=== PATIENT | male | born 1940 | race Caucasian/White ===

== ENCOUNTER 2017-08-03 03:44 | Inpatient (IN) | payer MEDICARE ==
[~2017-08-03] VITALS: Ht 172.7 cm; Wt 113.0 kg
[~2017-08-03 03:44] MED LIST: ALLOPURINOL100 MG PO; KEFLEX500 M1 PO; LASIX 40 MG40 MG/TAB PO; LOSARTAN POT50 MG PO; NAPROSYN500 MG OR; NO MEDS
[2017-08-03 04:09] LABS: HEMATOCRIT 48.2 % (39.0-50.0); IMMATURE GRANULOCYTES 0.4 % (0.0-1.0); MEAN CORPUSCULAR HGB 34.6 pG CALC (26.0-32.0); MEAN CORPUSCULAR HGB CONC 35.3 g/L CALC (32.0-36.0); NEUT# 14.77 thou/uL (1.82-7.42); RED BLOOD COUNT 4.92 mill/uL (4.70-6.10)
[2017-08-03 04:34] LABS: ALBUMIN 4.1 g/dL (3.2-5.0); ALKALINE PHOSPHATASE 76 u/l (38-126); ANION GAP 17 (6-22 (CALC)); BILIRUBIN, TOTAL 2.7 mg/dL (0.0-1.4); BUN 17 mg/dL (8-23); BUN/CREATININE RATIO 22 (12-20 (CALC)); CARBON DIOXIDE 27 mmol/l (22-30); CHLORIDE 98 mmol/l (95-108); CREATININE 0.8 mg/dL (0.7-1.3); GFR > 60 ML/MIN (>=60 (CALC)); GFR FOR AFR.AMER. > 60 ML/MIN (>=60 (CALC)); GLUCOSE 116 mg/dL (82-115); POTASSIUM 3.9 mmol/l (3.5-5.1); SGOT/AST 25 u/l (19-48); SGPT/ALT 29 u/l (11-66); SODIUM 138 mmol/l (137-146); TOTAL PROTEIN 7.6 g/dL (6.3-8.2)
[2017-08-03 04:47] LABS: MYOGLOBIN 43 ng/mL (0 - 121)
[2017-08-03 06:43] LABS: AMYLASE 126 u/l (30-110); LIPASE 691 u/l (23-300)
[2017-08-03 08:05] VITALS: BP 152/70
[2017-08-03 08:34] LABS: CHOLESTEROL HDL RATIO 2.4 (<4.4 (CALC))
[2017-08-03 14:07] LABS: URINE BLOOD DIPSTICK NEGATIVE (NEGATIVE); URINE CLARITY SLIGHT CLOUDY; URINE COLOR YELLOW; URINE GLUCOSE - DIPSTICK NEGATIVE (NEGATIVE); URINE KETONE TRACE mg/dL (NEGATIVE); URINE LEUK ESTERASE NEGATIVE (NEGATIVE); URINE NITRITE - DIPSTICK NEGATIVE (Negative); URINE PROTEIN - DIPSTICK 30 mg/dL (NEG-TRACE)
[2017-08-03 14:08] LABS: URINE BILIRUBIN - DIPSTICK NEGATIVE (NEGATIVE)
[2017-08-03 14:19] LABS: URINE BACTERIA FEW hpf; URINE RBC 0-2 RBC/hpf (0-5); URINE SQUAMOUS EPITHELIAL CELL MODERATE EPI/hpf (0-FEW); URINE WBC 0-2 WBC/hpf (0-5)
[2017-08-03 16:01] VITALS: BP 171/73
[2017-08-03 19:08] VITALS: BP 179/66
[2017-08-04 04:30] VITALS: BP 198/83
[2017-08-04 05:31] LABS: HEMOGLOBIN 15.6 g/dl (14.0-18.0); IMMATURE GRANULOCYTES 0.6 % (0.0-1.0); MEAN CORPUSCULAR HGB 34.7 pG CALC (26.0-32.0); MEAN CORPUSCULAR HGB CONC 34.7 g/L CALC (32.0-36.0); NEUT# 12.38 thou/uL (1.82-7.42); RED BLOOD COUNT 4.5 mill/uL (4.70-6.10); RED CELL DISTRI WIDTH 14.7 % (11.5-15.5)
[2017-08-04 05:39] LABS: ANION GAP 16 (6-22 (CALC)); BUN 13 mg/dL (8-23); BUN/CREATININE RATIO 18 (12-20 (CALC)); CALCIUM 8.7 mg/dL (8.4-10.2); CARBON DIOXIDE 26 mmol/l (22-30); CHLORIDE 96 mmol/l (95-108); CREATININE 0.7 mg/dL (0.7-1.3); GFR > 60 ML/MIN (>=60 (CALC)); GFR FOR AFR.AMER. > 60 ML/MIN (>=60 (CALC)); GLUCOSE 103 mg/dL (82-115); LIPASE 133 u/l (23-300); MAGNESIUM 1.8 mg/dL (1.6-2.3); POTASSIUM 3.9 mmol/l (3.5-5.1); SODIUM 134 mmol/l (137-146)
[2017-08-04 08:21] VITALS: BP 160/78
[2017-08-04] MEDS ORDERED: PEPCID20 MG PO (08:31)
[2017-08-04] MEDS ORDERED: AMLODIPINE BESYL5 MG PO (08:32)
[2017-08-04] MEDS ORDERED: LOSARTAN POT50 MG PO (09:17)
[2017-08-04 09:53] VITALS: BP 160/78
== END 2017-08-04 14:15 | disposition home or self-care (01) | DRG 304 ==
LOC: ED 03:44 → ED-I 06:20 → ED 07:04 → MS2 07:05
PROVIDERS: Emergency Medicine; Nurse Practitioner Family; ADMIT Internal Medicine; ATTEND Internal Medicine
DX: I16.0 Hypertensive urgency (principal); K85.90 Acute pancreatitis without necrosis or infection, unspecified; K76.0 Fatty (change of) liver, not elsewhere classified; L97.829 Non-pressure chronic ulcer of other part of left lower leg with unspecified severity; I10 Essential (primary) hypertension; M10.9 Gout, unspecified; M19.90 Unspecified osteoarthritis, unspecified site; R09.02 Hypoxemia; I87.2 Venous insufficiency (chronic) (peripheral); Z91.14 Patient's other noncompliance with medication regimen; Z87.891 Personal history of nicotine dependence
CPT/HCPCS: Q9967

== ENCOUNTER 2019-08-29 13:30 | Inpatient (IN) | payer MEDICARE ==
[~2019-08-29] VITALS: Ht 172.7 cm; Wt 104.2 kg
[~2019-08-29 13:30] MED LIST changes: +AMLODIPINE BESYL5 MG PO; +PEPCID20 MG PO
--- NOTE | 2019-08-29 13:30 | NUR ---
PT ASSITED FROM CAR WITH SOB. IMMEADIATELY TO TX AREA.
--- NOTE | 2019-08-29 13:49 | NUR ---
PT TO ROOM VIA WC. PT STATES BEING OUT OF MEDICATIONS, AND SOB FOR THE PAST FEW DAYS. PT HAS A NONPRODUCTIVE COUGH, PT IS AOX4. DENIES ANY C/P, N/V OR WEAKNESS.
[2019-08-29] MEDS ORDERED: LASIX80 MG PO (13:51)
[2019-08-29 14:28] LABS: HEMATOCRIT 41.3 % (39.0-50.0); HEMOGLOBIN 13.7 g/dl (14.0-18.0); IMMATURE GRANULOCYTES 0.5 % (0.0-5.0); MEAN CELL VOLUME 100.2 fL CALC (80.0-100.0); MEAN CORPUSCULAR HGB 33.3 pG CALC (26.0-32.0); MEAN CORPUSCULAR HGB CONC 33.2 g/L CALC (32.0-36.0); NEUT# 4.4 thou/uL (1.82-7.42); RED BLOOD COUNT 4.12 mill/uL (4.70-6.10); RED CELL DISTRI WIDTH 14.8 % (11.5-15.5)
--- NOTE | 2019-08-29 14:40 | NUR ---
PT RESTING ON STRETCHER, 400ML OF URINE OUTPUT
[2019-08-29 14:46] LABS: ALBUMIN 3.7 g/dL (3.2-5.0); ANION GAP 15 (6-22 (CALC)); BILIRUBIN, TOTAL 1.5 mg/dL (0.0-1.4); BUN 13 mg/dL (8-23); BUN/CREATININE RATIO 17 (12-20 (CALC)); CARBON DIOXIDE 25 mmol/l (22-30); CHLORIDE 105 mmol/l (95-108); CREATININE 0.8 mg/dL (0.7-1.3); GFR > 60 ML/MIN (>=60 (CALC)); GFR FOR AFR.AMER. > 60 ML/MIN (>=60 (CALC)); LIPASE 16 u/l (23-300); MAGNESIUM 1.8 mg/dL (1.6-2.3); SGOT/AST 24 u/l (19-48); SODIUM 140 mmol/l (137-146)
[2019-08-29 14:47] LABS: PROTHROMBIN TIME 12.1 SECONDS (9.0-12.5)
[2019-08-29 14:55] LABS: ALKALINE PHOSPHATASE 108 u/l (38-126)
[2019-08-29 14:56] LABS: INTERNATIONAL NORMALIZED RATIO 1.2 RATIO (0.7-1.3)
[2019-08-29 15:25] LABS: URINE BILIRUBIN - DIPSTICK NEGATIVE (NEGATIVE); URINE BLOOD DIPSTICK NEGATIVE (NEGATIVE); URINE COLOR YELLOW; URINE GLUCOSE - DIPSTICK NEGATIVE (NEGATIVE); URINE KETONE NEGATIVE (NEGATIVE); URINE LEUK ESTERASE NEGATIVE (NEGATIVE); URINE NITRITE - DIPSTICK NEGATIVE (Negative); URINE PROTEIN - DIPSTICK 30 mg/dL (NEG-TRACE); URINE SPECIFIC GRAVITY 1.025
[2019-08-29 15:30] LABS: URINE MUCUS FEW hpf (NONE-FEW); URINE SQUAMOUS EPITHELIAL CELL FEW EPI/hpf (0-FEW)
--- NOTE | 2019-08-29 15:41 | NUR ---
SBAR PRINTED TO FLOOR
--- NOTE | 2019-08-29 16:01 | NUR ---
400 ML OF URINE OUT
--- NOTE | 2019-08-29 16:29 | NUR ---
REPORT CALLED TO MS2EVANS RN ACCEPTED PT
--- NOTE | 2019-08-29 16:35 | NUR ---
Admission Note Report Given to: EVANS RN Transported by: Wheelchair X Stretcher Transported with: X Nurse Transporter X Patent IV X O2 X Roadmaster TRANSPORTED [place] [facility] [place]
[2019-08-29 16:46] VITALS: BP 184/118
[2019-08-29 17:45] VITALS: BP 173/100
--- NOTE | 2019-08-29 17:52 | NUR ---
PT ARRIVED TO FLOOR @ 1640 VIA STRETCHER ACCOMPANIED BY RIVAS EVANS. PT TRANSFERED TO BED WITH STANDBY ASSIST. UNSTEADY GAIT R/T EDEMA BILAt FEET. SOB W/ EXERTION NOTED. PT ORIENTED TO ROOM ADN EQUIPMENT. PLAN OF CARE REVIEWED. DR. OAKLEY IN TO SEE PT. PLAN OF CARE UPDATED. ALERT AND ORIENTED. HARD OF HEARING. O2 @ 2L VIA NC, PT STATES DOES NOT USE O2 AT HOME. WHEEZING HEARD THROUGHOUT LUNGS. PRODUCTIVE COUGH, YELLOW THICK SPUTUM REPORTED. 2+ EDEMA TO BILAT FEET, PEDAL PULSES WEAK. LAST BM 08/28/19. HEART SOUNDS IRREGULAR, AFIB 67 ON TELE PER GEOVANNI IN ED. #20 LAC SALINE LOCK. SCATTERED SCABBINGS TO ALL EXTREMITIES AND FACE, NOTHING OPEN. PT DENIES PAIN. REPORTING OF CONCERNS ENCOURAGED. CALL LIGHT REVIEWED AND IN REACH. FALL PRECAUTIONS REINFORCED. PT STATES UNDERSTANDING.
[2019-08-29 19:10] VITALS: BP 115/59
--- NOTE | 2019-08-29 19:43 | NUR ---
PT IV ANTIBIOTIC THERAPY COMPLETED AT THIS TIME. IV SITE FLUSHED/APPEARS HEALTHY TO LAC. PT ASSESSMENT COMPLETED AT THIS TIME. 02 ON @2L NC. PT DENIES PAIN/N/V, ONLY SOB ON EXERTION. REPORTS LOOSE STOOL FOR TWO DAYS, MINIMAL TODAY, BUT 5X OVER LAST NIGHT REPORTED/ABNORMAL FOR PT. ABD DIST/SOFT/NON-TENDER W/ACTIVE BOWEL SOUNDS. WILL CONITNUE TO MONITOR. PT IS IN HIGH FOWLERS POSITION WATCHING TV. CALL LIGHT IN HAND AND PT ENCOURAGED TO CALL.
[2019-08-29 21:00] VITALS: BP 137/76
--- NOTE | 2019-08-29 21:10 | NUR ---
ED REPORTED PT HR IN MID 40'S TO 58. V/S ASSESSED HR MEASURED AT 61. NITRO-PASTE PATCH REMOVED FROM PTS UPPER RIGHT CHEST, DENIES HEADACHE. PT MEDICATED ORDERS PROVIDE AND POC DISCUSSED. EDUCATION PROVIDED REGARDING NEW MEDICATION AND DIAGNOSIS/PT VERBALIZES UNDERSTANDING. WILL CONITNUE TO MONITOR. URINAL LEFT W/IN PT REACH FOR FREQUENT URINATION DUE TO LASIX BEING ADMINISTERED AT THIS TIME AND PT INSTRUCTED TO CALL HE NEEDS ASSISTANCE W/URINAL OR ANY OTHER NEEDS. CALL LIGHT W/IN REACH ON BST.
[2019-08-29 23:46] VITALS: BP 151/81
--- NOTE | 2019-08-30 01:25 | NUR ---
PT SLEEPING AT THIS TIME. NO S/O DISTRESS NOTED. URINAL AT BEDSIDE.
--- NOTE | 2019-08-30 01:50 | NUR ---
ED CALLED TO REPORT PT IS OFF TELEMETRY/LEAD CONTACTS REPLACED BY AIDE, PT DENIES ANY NEEDS AT THIS TIME.
--- NOTE | 2019-08-30 03:15 | NUR ---
PT SLEEPING AT THIS TIME. NO S/O DISTRESS NOTED, SONOROUS SOUNDS OBSERVED. CALL LGIHT AND URINAL AT SIDE.
[2019-08-30 04:50] VITALS: BP 166/93
[2019-08-30 05:49] LABS: HEMATOCRIT 40.8 % (39.0-50.0); HEMOGLOBIN 13.4 g/dl (14.0-18.0); MEAN CORPUSCULAR HGB 32.8 pG CALC (26.0-32.0); MEAN CORPUSCULAR HGB CONC 32.8 g/L CALC (32.0-36.0); RED BLOOD COUNT 4.08 mill/uL (4.70-6.10); RED CELL DISTRI WIDTH 14.7 % (11.5-15.5)
[2019-08-30 06:03] LABS: ANION GAP 16 (6-22 (CALC)); BUN 16 mg/dL (8-23); BUN/CREATININE RATIO 21 (12-20 (CALC)); CARBON DIOXIDE 26 mmol/l (22-30); CHLORIDE 103 mmol/l (95-108); CREATININE 0.8 mg/dL (0.7-1.3); GFR > 60 ML/MIN (>=60 (CALC)); GFR FOR AFR.AMER. > 60 ML/MIN (>=60 (CALC)); MAGNESIUM 1.9 mg/dL (1.6-2.3); POTASSIUM 4.4 mmol/l (3.5-5.1); SODIUM 140 mmol/l (137-146)
[2019-08-30 07:50] VITALS: BP 165/86
--- NOTE | 2019-08-30 08:05 | NUR ---
ASSESSMENT DONE. PT IS A&O X3. PT DENIES PAIN AT THIS TIME. O2 AT 2L VIA NC. TELE IN PLACE. 2+ EDEMA BLE. RIGHT INDEX FINGER PT HAS A BLISTER THAT HE STATED IT HAPPEN AT HOME. PT DENIES ANY OTHER NEEDS AT THIS TIME. SAFETY PRECAUTIONS REINFORCED AND CALL LIGHT IN REACH.
[2019-08-30 10:55] VITALS: BP 148/83
--- NOTE | 2019-08-30 11:11 | NUR ---
ED CALLED THAT PT TELE READING 120-130. CHECK ON PT NO S/S OF DISTRESS NOTED. PT STATED HE HAS BEEN COUHING. NOTIFIED DR. OAKLEY AND KIM VICENTE.
--- NOTE | 2019-08-30 15:00 | NUR ---
PT IS SITTING IN RECLINER WITH NO S/S OF DISTRESS NOTED. PT DENIES NEEDS AT THIS TIME. CALL LIGHT IN REACH.
--- NOTE | 2019-08-30 15:12 | NUR ---
PT WENT VIA WHEELCHAIR WITH VOLUNTEER TO ECHO.
[2019-08-30 16:02] VITALS: BP 150/70
[2019-08-30 18:58] VITALS: BP 153/78
--- NOTE | 2019-08-30 19:25 | NUR ---
REPORT RECEIVED FROM DAY NURSE. PT IS UPRIGHT IN BED, REPORTS HAVING GOTTEN SHOWER THIS DAY AND STATED THAT IV HAD GOTTEN SLIGHTLY WET AND NEEDED DRESSING/TAPE TO BE CHANGED, BUT THAT HE FEELS MUCH BETTER SINCE GETTING SHOWER. DENIES ANY OTHER NEEDS AT THIS TIME. WILL COMPLETE ROUNDS AND FOLLOW-UP W/IV SITE CARE. CALL LIGHT AT SIDE.
--- NOTE | 2019-08-30 21:41 | NUR ---
PT MEDICATED ORDERS PROVIDE AND ASSESSMENT COMPLETED. LUNG SOUNDS ARE COURSE W/MILD UPPER WHEEZE UPON EXPIRATION. EDEMA TO BLE 1+ PITTING. URINAL AT BEDSIDE AND PT REPORTS USING. NO SOB OBSERVED AT THIS TIME. IV SITE CARE HAS BEEN PROVIDED, FLUSHES WELL, APPEARS PATENT. PT ENCOURAGED TO CALL NEEDS ARISE.
[2019-08-31] VITALS (7 sets, daily range): BP systolic 125–177; BP diastolic 52–103
--- NOTE | 2019-08-31 00:48 | NUR ---
PT MEDICATED FOR ELEVATED BP 177/98, HR 68. WILL REASSESS FOR BP. DENIES ANY OTHER NEEDS AT THIS TIME. URINAL EMPTIED OF 800CC OF CLEAR YELLOW URINE.
[2019-08-31 04:48] LABS: HEMATOCRIT 40.3 % (39.0-50.0); HEMOGLOBIN 13.1 g/dl (14.0-18.0); MEAN CORPUSCULAR HGB 32.8 pG CALC (26.0-32.0); MEAN CORPUSCULAR HGB CONC 32.5 g/L CALC (32.0-36.0); RED BLOOD COUNT 3.99 mill/uL (4.70-6.10); RED CELL DISTRI WIDTH 14.7 % (11.5-15.5)
[2019-08-31 05:07] LABS: ANION GAP 12 (6-22 (CALC)); BUN 21 mg/dL (8-23); BUN/CREATININE RATIO 27 (12-20 (CALC)); CARBON DIOXIDE 30 mmol/l (22-30); CHLORIDE 101 mmol/l (95-108); CREATININE 0.8 mg/dL (0.7-1.3); GFR > 60 ML/MIN (>=60 (CALC)); GFR FOR AFR.AMER. > 60 ML/MIN (>=60 (CALC)); POTASSIUM 4.3 mmol/l (3.5-5.1); SODIUM 139 mmol/l (137-146)
--- NOTE | 2019-08-31 05:45 | NUR ---
PT SITTING ON SIDE OF THE BED LOOKING AT HIS PHONE. PT REPORTS FEELING MUCH BETTER AT THIS TIME. NO S/O DISTRESS AT THIS TIME. URINAL EMPTIED OF 800CC CLEAR YELLOW URINE AT THIS TIME.
--- NOTE | 2019-08-31 08:18 | NUR ---
PT AWAKE, ALERT, APPROPRIATE. LUNGS ARE RIGHT, COARSE SOMEWHAT IN BASES, 2 LPM. HR IRREGULAR PER AFIB, CONTROLLED RATE. PT IS WHITTEN, HR ELEVATES WHEN HE IS UP TO BR BUT COMES DOWN SOON. NO COMPLAINTS, NO ISSUES.
--- NOTE | 2019-08-31 12:00 | NUR ---
PT OOB IN CHAIR FOR MUCH OF THE MORNING, NO COMPLAINTS OF SHORTNESS OF BREATH OR OTHERWISE. PT IS [place], KEEPS VOLUMES LOUD. MONITOR CONTINUES TO SHOW [employer].
--- NOTE | 2019-08-31 16:59 | NUR ---
PT CONTINUES BEFORE, NAPPING IN CHAIR AT BEDSIDE WITH TV ON. NO DISTRESS, NO SHORTNESS OF BREATH.
--- NOTE | 2019-08-31 20:30 | NUR ---
PT. ASSSITED TO THE BED FROM THE CHAIR ;ASSESSMENT COMPLETED. IV SITE LEAKING WITH BLOOD NOTED TO DRESSING ; REMOVED AT THIS TIME AND CATHETER INTACT. NEW IV SITE STARTED TO RIGHT WRIST X1 ATTEMPT AND FLUSHED WITH NS. SCHED MEDS GIVEN. GOWN CHANGED. PT. DENIES ANY FURTHER NEEDS. O2 INFUSING PER NC PER ORDER. CALL LIGHT IS IN REACH. WILL CONTINUE TO MONITOR. CALL LIGHT IS IN REACH.
--- NOTE | 2019-08-31 22:40 | NUR ---
RESTING IN BED WITH NO DISTRESS NOTED;DENIES NEEDS/PAIN. URINAL EMPTIED. ENCOURAGED TO CALL FOR ANY NEEDS. CALL LIGHT IS IN REACH.
[2019-09-01] VITALS (7 sets, daily range): BP systolic 144–167; BP diastolic 80–97
--- NOTE | 2019-09-01 00:33 | NUR ---
RESTING IN BED WITH EYES CLOSED; RESP. EVEN AND UNLABORED. CALL LIGHT IS IN REACH.
--- NOTE | 2019-09-01 02:10 | NUR ---
PT. SITTING UP IN BED AND DENIES NEEDS. URINAL EMPTIED. CALL LIGHT IS IN REACH.
--- NOTE | 2019-09-01 04:18 | NUR ---
SITTING UP IN RECLINER WITH NO DISTRESS NOTED;DENIES NEEDS/PAIN. ENCOURAGED TO CALL FOR ANY NEEDS. CALL LIGHT IS IN REACH.
[2019-09-01 05:58] LABS: ANION GAP 14 (6-22 (CALC)); BUN 28 mg/dL (8-23); BUN/CREATININE RATIO 34 (12-20 (CALC)); CARBON DIOXIDE 33 mmol/l (22-30); CHLORIDE 98 mmol/l (95-108); CREATININE 0.8 mg/dL (0.7-1.3); GFR > 60 ML/MIN (>=60 (CALC)); GFR FOR AFR.AMER. > 60 ML/MIN (>=60 (CALC)); MAGNESIUM 2.1 mg/dL (1.6-2.3); POTASSIUM 4.5 mmol/l (3.5-5.1); SODIUM 139 mmol/l (137-146)
--- NOTE | 2019-09-01 07:00 | NUR ---
SHIFT CHANGE REPORT, PT SITTING UP IN RECLINER ALERT AND ORIENTED, PLEASANTLY CONVERSANT, NO C/O DISCOMFORT, TELE MONITOR IN PLACE, CALL LOU IN REACH.
--- NOTE | 2019-09-01 12:00 | NUR ---
SITTING UP IN RECLINER, ALL NEEDS ADDRESSED, HAVING MEAL AT THIS TIME, NO C/O DISCOMFORT.
--- NOTE | 2019-09-01 16:13 | NUR ---
SITTING UP IN RECLINER WATCHING BALL GAME ON TV, ALL NEEDS ADDRESSED, CALL LOU IN REACH.
--- NOTE | 2019-09-01 20:10 | NUR ---
ASSESSMENT COMPLETED. IV SITE PATENT AND SL. SCHED MEDS GIVEN. VSS. O2 INFUSING PER NC. PT. WITH PRODUCTIVE COUGH. EDEMA NOTED TO BLE >LLE; PULSES WEAK. ENCOURAGED TO CALL FOR ANY NEEDS. URINAL AT BEDSIDE FOR ACCURATE INTAKE AND OUTPUT. CALL LIGHT IS IN REACH. WILL CONTINUE TO MONITOR.
--- NOTE | 2019-09-01 23:11 | NUR ---
PT. RESTING IN BED WITH NO DISTRESS NOTED. DENIES NEEDS/PAIN. VS OBTAINED. CALL LIGHT IS IN REACH. URINAL EMPTIED. CALL LIGHT IS IN REACH.
[2019-09-02] VITALS (8 sets, daily range): BP systolic 141–180; BP diastolic 80–93
--- NOTE | 2019-09-02 02:00 | NUR ---
RESTING IN BED WITH EYES CLOSED; NO DISTRESS NOTED; CALL LIGHT IS IN REACH.
--- NOTE | 2019-09-02 04:30 | NUR ---
MANUAL B/P 180/ AND MEDICATED WITH ORDERED PRN APRESOLINE; WILL REASSESS. DENIES NEEDS. CALL LIGHT IS IN REACH.
--- NOTE | 2019-09-02 05:39 | NUR ---
B/P REASSESSED AND NOW 157/82; DENIES NEEDS/PAIN. ENCOURAGED TO CALL FOR ANY NEEDS. CALL LIGHT IS IN REACH. WILL CONTINUE TO MONITOR.
--- NOTE | 2019-09-02 07:05 | NUR ---
PT REPORT RECEIVED FROM RIVAS CAMPOS. PT RESTING. NO S/S OF DISTRESS. CALL LIGHT IN REACH. WILL CONTINUE TO MONITOR.
--- NOTE | 2019-09-02 07:35 | NUR ---
PT A/O X3. RESP EVEN AND UNLABORED. LUNGS DIMINISHED. PRODUCTIVE COUGH PER PT; YELLOW AND THICK. O2 @2L ON PT. BOWEL SOUNDS ACTIVE X4. STRONG RADIAL, WEAK PEDAL PULSES. EDEMA NOTED TO BLE. +2 EDEMA TO RT FOOT, +3 EDEMA TO LT FOOT. DISCOLORATION TO BLE WELL. PT DENIES ANY PAIN OR NEEDS. POC DISCUSSED. SAFETY PRECAUTIONS IN PLACE. CALL LIGHT IN REACH. WILL CONTINUE TO MONITOR.
--- NOTE | 2019-09-02 09:37 | NUR ---
CALLED AND SPOKE TO JAYJAY AT OFFICE REGARDING CONSULTATION. GAVE HER PT INFORMATION STATED SHE WILL GIVE HIM THE CONSULTATION.
--- NOTE | 2019-09-02 12:17 | NUR ---
PT WATCHING TELEVISION SITTING IN RECLINER. NO C/O PAIN OR NEEDS. CALL LIGHT IN REACH. WILL CONTINUE TO MONITOR.
--- NOTE | 2019-09-02 16:13 | NUR ---
PT WATCHING TELEVISION. NO C/O PAIN OR NEEDS. O2 @2L IN PLACE. CALL LIGHT IN REACH. WILL CONTINUE TO MONITOR.
--- NOTE | 2019-09-02 20:00 | NUR ---
PATIENT SITTING UP IN RECLINER AT THIS TIME WITH O2 VIA NASAL CANNULA IN PLACE. TELE MONITOR IN PLACE. IV SITE TO RIGHT WRIST INTACT. BP-170/83, PULSE-68. HS MEDS GIVEN INCLUDING METOPROLOL AND LASIX GIVEN. PATIENT IS VOIDING SANDEE URINE IN URINAL. RIGO LE EXTREMITY SWELLING NOTED. LUNGS ARE DIMINISHED. SAFETY PRECAUTIONS REINFORCED. CALL LIGHT IN REACH. WILL CONT TO MONITOR.
--- NOTE | 2019-09-03 00:18 | NUR ---
PATIENT RESTING IN BED WITH HOB SLIGHTLY ELEVATED. O2 VIA NASAL CANNULA IN PLACE. RESP ARE EVEN AND UNLABORED AT THIS TIME. TELE MONITOR IN PLACE. CALL LIGHT IN REACH. WILL CONT TO MONITOR.
--- NOTE | 2019-09-03 02:56 | NUR ---
APPEARS SLEEPING WITH O2 VIA NASAL CANNULA IN PLACE AND EYES CLOSED. RESP ARE EVEN AND UNLABORED. TELE MONITOR IN PLACE. CALL LIGHT IN REACH. WILL CONT TO MONITOR.
--- NOTE | 2019-09-03 04:33 | NUR ---
PATIENT APPEARS SLEEPING WITH EYES CLOSED AND O2 VIA NASAL CANNULA IN PLACE. TELE MONITOR IN PLACE. PATIENT CONT TO VOID IN URINAL. CALL LIGHT IN REACH. WILL CONT TO MONITOR.
[2019-09-03 04:45] VITALS: BP 182/94
[2019-09-03 04:52] LABS: HEMATOCRIT 42.9 % (39.0-50.0); HEMOGLOBIN 14.2 g/dl (14.0-18.0); MEAN CORPUSCULAR HGB 33.1 pG CALC (26.0-32.0); MEAN CORPUSCULAR HGB CONC 33.1 g/L CALC (32.0-36.0); RED BLOOD COUNT 4.29 mill/uL (4.70-6.10); RED CELL DISTRI WIDTH 13.9 % (11.5-15.5)
[2019-09-03 05:06] LABS: ANION GAP 11 (6-22 (CALC)); BUN 35 mg/dL (8-23); BUN/CREATININE RATIO 42 (12-20 (CALC)); CARBON DIOXIDE 35 mmol/l (22-30); CHLORIDE 96 mmol/l (95-108); CREATININE 0.8 mg/dL (0.7-1.3); GFR > 60 ML/MIN (>=60 (CALC)); GFR FOR AFR.AMER. > 60 ML/MIN (>=60 (CALC)); MAGNESIUM 2.2 mg/dL (1.6-2.3); POTASSIUM 4.5 mmol/l (3.5-5.1); SODIUM 137 mmol/l (137-146)
--- NOTE | 2019-09-03 05:06 | NUR ---
PATIENT RESTING IN BED-AWAKE AND ALERT. BP-182/94, HR-72. PATIENT MEDICATED WITH APRESOLINE 10MG IVP ORDERED FOR HTN. CALL LIGHT IN REACH. WILL CONT TO MONITOR.
[2019-09-03 06:01] VITALS: BP 139/63
--- NOTE | 2019-09-03 06:18 | NUR ---
PATIENT RESTING IN BED WITH O2 VIA NASAL CANNULA IN PLACE. BP IMPROVED TO 139/63, HR-80. TELE MONITOR IN PLACE. CALL LIGHT IN REACH. WILL CONT TO MONITOR.
--- NOTE | 2019-09-03 07:05 | NUR ---
PT REPORT RECEIVED FROM RIVAS OSBORNE. PT SLEEPING. NO S/S OF DISTRESS. CALL LIGHT IN REACH. WILL CONTINUE TO MONITOR.
[2019-09-03 07:41] VITALS: BP 162/88
--- NOTE | 2019-09-03 07:41 | NUR ---
PT A/O X3. RESP EVEN AND UNLABORED. WHEEZING NOTED ANTERIORLY, COARSE POSTERIORLY. O2 @2L ON PT. BOWEL SOUNDS ACTIVE X4. STRONG RADIAL AND RT PEDAL PULSE, WEAK LT PEDAL PULSE. +2 EDEMA NOTED TO LT FOOT, +1 EDEMA TO RT FOOT. BLE SWELLING NOTED. DISCOLORATION TO BLE ALSO. #22 RW SL. FLUSHED AND PATENT. SITE APPEARS HEALTHY. PT DENIES ANY PAIN OR NEEDS. POC DISCUSSED. SAFETY PRECAUTIONS IN PLACE. CALL LIGHT IN REACH. WILL CONTINUE TO MONITOR.
[2019-09-03] MEDS ORDERED: ELIQUIS5 MG PO (09:39)
[2019-09-03] MEDS ORDERED: LISINOPRIL20 M1 PO (09:39)
[2019-09-03] MEDS ORDERED: LASIX 40 MG TAB40 MG PO (09:39)
[2019-09-03] MEDS ORDERED: LOPRESSOR25 MG PO (09:39)
[2019-09-03] MEDS ORDERED: IPRATROPIU0.5 MG/3 M NEB (09:39)
[2019-09-03] MEDS ORDERED: PREDNISONE10 MG PO (09:39)
[2019-09-03 11:31] VITALS: BP 141/78
--- NOTE | 2019-09-03 12:49 | NUR ---
PT WATCHING TELEVISION. NO C/O PAIN OR NEEDS. CALL LIGHT IN REACH. WILL CONTINUE TO MONITOR.
--- NOTE | 2019-09-03 13:00 | NUR ---
D/C INSTRUCTIONS DISCUSSED W/ PT. PT STATES UNDERSTANDING. IV REMOVED; CATHETER INTACT. PT DRESSED. WAITING FOR FRIEND TO ARRIVE
--- NOTE | 2019-09-03 15:32 | NUR ---
Discharge instructions given. Patient verbalizes understanding of same. Discharged in stable condition via Wheelchair to Home with friend. All belongings sent with pt.
== END 2019-09-03 15:32 | disposition home health service (06) | DRG 291 ==
LOC: ED 13:30 → ED-I 15:27 → ED 15:36 → MS2 15:37
PROVIDERS: ADMIT Internal Medicine; ATTEND Internal Medicine
PROC: 3E0234Z Introduction of Serum, Toxoid and Vaccine into Muscle, Percutaneous Approach (ICD-10-PCS; principal; 2019-08-30)
PROC: 3E02340 Introduction of Influenza Vaccine into Muscle, Percutaneous Approach (ICD-10-PCS; 2019-08-30)
DX: I11.0 Hypertensive heart disease with heart failure (principal); I50.21 Acute systolic (congestive) heart failure; J44.1 Chronic obstructive pulmonary disease with (acute) exacerbation; I16.0 Hypertensive urgency; I48.0 Paroxysmal atrial fibrillation; I27.20 Pulmonary hypertension, unspecified; I08.1 Rheumatic disorders of both mitral and tricuspid valves; M19.90 Unspecified osteoarthritis, unspecified site; M10.9 Gout, unspecified; R00.1 Bradycardia, unspecified; T50.1X6A Underdosing of loop [high-ceiling] diuretics, initial encounter; T44.7X5A Adverse effect of beta-adrenoreceptor antagonists, initial encounter; Z87.891 Personal history of nicotine dependence; Z91.128 Patient's intentional underdosing of medication regimen for other reason; Z23 Encounter for immunization
CPT/HCPCS: G0378

== ENCOUNTER 2019-12-30 06:37 | Inpatient (IN) | payer MEDICARE ==
[2019-12-30] VITALS (15 sets, daily range): BP systolic 91–150; BP diastolic 52–77
[~2019-12-30] VITALS: Ht 172.7 cm; Wt 96.8 kg
[~2019-12-30 06:37] MED LIST changes: +ELIQUIS5 MG PO; +IPRATROPIU0.5 MG/3 M NEB; +LASIX 40 MG TAB40 MG PO; +LASIX80 MG PO; +LISINOPRIL20 M1 PO; +LOPRESSOR25 MG PO; +PREDNISONE10 MG PO
--- NOTE | 2019-12-30 06:44 | NUR ---
PATIENT TO ROOM 6 WITH ASSIST OF CANE. OFFERED WHEELCHAIR, BUT DECLINED TRIAGE COMPLETED AT BEDSIDE. PATIENT STATES HE THINKS HE IS HAVING A REACTION TO HIS BLOOD THINNER, STATES HE HAS SORES IN HIS MOUTH, BLOOD BLISTERS TO ARMS AND LEGS. STATES HE HAS LAB WORK TO BE DRAWN TODAY AT 10 BUT DOESN'T THINK HE HAS TRANSPORTATION TO GET THERE.
[2019-12-30] MEDS ORDERED: JANTOVEN5 MG PO (07:00)
[2019-12-30] MEDS ORDERED: SPIRONOLACT25 MG PO (07:01)
--- NOTE | 2019-12-30 07:10 | NUR ---
PATIENT REPORTS BEING ON COUMADIN FOR BLOOD CLOTS AND HAS BEEN HAVING BLOOD BLISTERS TO MOUTH AND FACE, DRIED BLOOD NOTED TO LEFT EAR. NO ACTIVE EXTERNAL BLEEDING NOTED. PATIENT ALERT AND ORIENTED X3. DENIES ANY CHEST PAIN, TOOK BREATHING TREATMENT PRIOR TO ARRIVAL, DENIES ANY SOB. EKG, IV SITE PLACED TO LAC #20, LABS COLLECTED AND PATIENT PLACED ON HEARING AND SPEECH ASSISTANT. LORNA ALEXANDER AT BEDSIDE.
[2019-12-30 07:20] LABS: IMMATURE GRANULOCYTES 0.4 % (0.0-5.0); MEAN CELL VOLUME 94.5 fL CALC (80.0-100.0); MEAN CORPUSCULAR HGB 32.2 pG CALC (26.0-32.0); MEAN CORPUSCULAR HGB CONC 34.1 g/L CALC (32.0-36.0); NEUT# 9.09 thou/uL (1.82-7.42); RED BLOOD COUNT 3.63 mill/uL (4.70-6.10); RED CELL DISTRI WIDTH 12.9 % (11.5-15.5)
[2019-12-30 07:25] LABS: HEMATOCRIT 34.3 % (39.0-50.0); HEMOGLOBIN 11.7 g/dl (14.0-18.0)
[2019-12-30 07:38] LABS: ANION GAP 13 (6-22 (CALC)); BUN 26 mg/dL (8-23); BUN/CREATININE RATIO 35 (12-20 (CALC)); CHLORIDE 100 mmol/l (95-108); CREATININE 0.8 mg/dL (0.7-1.3); GFR > 60 ML/MIN (>=60 (CALC)); GFR FOR AFR.AMER. > 60 ML/MIN (>=60 (CALC)); POTASSIUM 4.2 mmol/l (3.5-5.1); SODIUM 135 mmol/l (137-146)
[2019-12-30 07:39] LABS: CARBON DIOXIDE 26 mmol/l (22-30)
--- NOTE | 2019-12-30 07:50 | NUR ---
PATIENT MEDICATED PER MD ORDER AND REPOSITIONED IN BED. SIDERAILES UP X2, CALL LIGHT WITHIN REACH. WILL CONTINUE TO MONITOR.
--- NOTE | 2019-12-30 08:34 | NUR ---
PATIENT REPORTS PAIN LEVEL 2/10, URINAL PROVIDED PER REQUEST.
--- NOTE | 2019-12-30 09:35 | NUR ---
PATIENT RESTING ON STRETCHER WAITING FOR LAB RESULTS. MYKE HYMAN ON PHONE. VERBAL CONSENT FROM PATIENT TO UPDATE MYKE HYMAN. CALLER REPORTS PATIENT BEING PLACED ON COUMADIN APPROX. 2 WEEKS AGO BY DUE TO PATIENT NOT BEING ABLE TO AFFORD ELIQUIS. STATES PATIENT HAS NOT BEEN ABLE TO CHECK LEVELS FOR COUMADIN SINCE HE STARTED TREATMENT.
[2019-12-30 09:54] LABS: PROTHROMBIN TIME > 300.0 SECONDS (9.0-12.5)
[2019-12-30 09:55] LABS: INTERNATIONAL NORMALIZED RATIO > 29.6 RATIO (0.7-1.3)
--- NOTE | 2019-12-30 10:00 | NUR ---
AT BEDSIDE TO DISCUSS RESULTS AND PLAN OF CARE WITH PATIENT. VERBAL UNDERSTANDING.
--- NOTE | 2019-12-30 10:00 | NUR ---
RECIEVED REPORT BY LEEROY HATHAWAY
--- NOTE | 2019-12-30 10:15 | NUR ---
BEDSIDE REPORT GIVEN TO RIVAS WEAVER. CONSENT OBTAINED FOR TRANSFUSING OF BLOOD PRODUCTS. CARE RELINQUISHED.
--- NOTE | 2019-12-30 10:30 | NUR ---
PT IS RESTING ON STRETCHER DENIES ANY NEEDS. PT IS TALKATIVE AND JOKING. PT REPOSITIONED. PT CLEANED UP IN PLACES WHERE BLOOD IS OOZING
--- NOTE | 2019-12-30 11:30 | NUR ---
ATTEMPTED IV ACCESS, UNSUCCESSFUL FOR SECOND IV. CHARGE NURSE INFORMED AND HE SAID TO ATTEMPT LATER. PT DENIES ANY NEEDS AT THIS TIME. CALL LIGHT WITHIN REACH
--- NOTE | 2019-12-30 11:43 | NUR ---
SBAR PRINTED TO FLOOR
--- NOTE | 2019-12-30 12:00 | NUR ---
IV ACCESS WAS ATTEMPTED BY CHARGE NURSE, UNSUCCESSFUL. THE ONE IV WILL BE USED FOR NOW. PT DENIES ANY NEEDS AT THIS TIME. PT CLEANED UP FROM OZZING BLOOD AND BLANKET CHANGED
--- NOTE | 2019-12-30 12:12 | NUR ---
REPORT CALLED TO YULY IN ICU
--- NOTE | 2019-12-30 12:31 | NUR ---
PT ADMITTED TO ICU BED 3 FOR COUMADIN TOXICITY FOR ED. PT TRANSFERRED SELF FROM STRETCHER TO BED, SLOW STEADY GAIT. PT WITH EXTREME BRUISING NOTED ALL OVER BODY, ARMS, MULTIPLE BLOOD BLISTERS, SITES OOZING FROM MOUTH, EARS, ARMS. PT STATES THIS STARTED A DAY OR TWO AGO. PT A&0X4, ABLE TO MAKE NEEDS KNOWN. RESPIRATIONS EVEN/UNLABORED, SA02@98%RA, LS CLEAR THROUGHOUT, ABDOMEN DISTENDED, NON TENDER, BSX4, LBM 2-3-20. PT ORIENTED TO ROOM, CALL LIGHT AND UNIT. CALL LIGHT IN REACH. WILL MONITOR.
--- NOTE | 2019-12-30 12:35 | NUR ---
PT TRANSPORTED TO ICU IN STABLE CONDITION AND IN NO DISTRESS VIA STRETCHER. PT HAS MED INFUSING. PT AOX4. CARE ASSUMED TO DODIE. ASSISTED IN PT TRANSFER
--- NOTE | 2019-12-30 13:45 | NUR ---
PT/EX SON-IN-LAW EDUCATED ON BLOOD PRODUCT TRANSFUSION, SIDE EFFECTS TO NOTIFY STAFF, & INDICATION FOR PRODUCTS. PT DENIES SOB, ANY PAIN AT THIS TIME.
--- NOTE | 2019-12-30 14:31 | NUR ---
PT SLEEPING IN BED, SITTING UP, FFP RUNNING W/OUT S/S OF S/E. WILL CONTINUE TO MONITOR. CALLBELL ON LAP.
--- NOTE | 2019-12-30 15:41 | NUR ---
PT BATHED, LINENS CHANGED. WOUNDS PHOTOGRAPHED & BANDAGED. MILD HIVES TO ITCHY HIVES TO LEFT ABD- BARRIER CREAM APPLIED.
--- NOTE | 2019-12-30 16:00 | NUR ---
PT RESTING IN BED, TALKING ON PERSONAL CELL PHONE.
--- NOTE | 2019-12-30 17:00 | NUR ---
FFP INFUSING. PT TOLERATING WELL.
--- NOTE | 2019-12-30 18:44 | NUR ---
PT RESTING IN BED, OFFERS NO COMPLAINTS AT THIS TIME. CALL LIGHT IN REACH. WILL MONITOR.
--- NOTE | 2019-12-30 18:50 | NUR ---
REPORT FROM Suellen CHAPIN RN. ASSUMED PT. CARE.
--- NOTE | 2019-12-30 19:15 | NUR ---
PT. FOUND AWAKE, ALERT, ORIENTED X 3. PT. REQUESTING TO USE RESTROOM. DISCONNECTED FROM MONITOR AND AMBULATORY WITH CAN TO RESTROOM. PT. TOLERATED AMBULATION WELL. PT. NOTED WITH SMALL FORMED STOOL BLACK IN COLOR. DENIES COMPLAINTS OF ABDOMINAL PAIN. UPON SITTING BACK IN BED, PT. BUMPED AN AREA OF BRUISING THAT OPENED UP ON LLE. CLEANSED AND NON-STICK DRESSING APPLIED TO SITE WITH GUAZE AND COBAN. LUNGS DIMINISHED TO BASES BILAT. BOWEL SOUND ACTIVE. LOWER EXT 1+ EDEMA. APPEARS WITH DISCOLORATION FROM LIKELY VENOUS INSUFFICIENCY. PT. WITH NOTED AREAS OF SCABBING AND DRESSINGS APPLIED BY PRIOR SHIFT. DENIES COMPLAINTS OF PAIN AT THIS TIME. MAE. PAGE. AFEBRILE. CALL LIGHT WITHIN REACH. WILL CONTINUE TO MONITOR.
--- NOTE | 2019-12-30 21:15 | NUR ---
PT. SITTING UP IN CHAIR IN NO DISTRESS WATCHING TELEVISION. CALL LIGHT REMAINS WITHIN REACH. UPDATED ON PLAN OF CARE FOR THE EVENING. CALL LIGHT REMAINS WITHIN REACH. WILL CONTINUE TO MONITOR.
[2019-12-30 22:25] LABS: INTERNATIONAL NORMALIZED RATIO 1.4 RATIO (0.7-1.3); PROTHROMBIN TIME 14.7 SECONDS (9.0-12.5)
--- NOTE | 2019-12-30 23:05 | NUR ---
NEB TREATMENT COMPLETED AT THIS TIME. PT. RESTING IN BED IN NO DISTRESS. CALL LIGHT REMAINS WITHIN REACH. ASKING FOR PAIN MEDICATION, NEW ORDERS RECEIVED. WILL MEDICATE ORDERED.
--- NOTE | 2019-12-30 23:37 | NUR ---
PT. MEDICATED PER PHYSICIAN ORDERS. WILL CONTINUE TO CLOSELY MONITOR.
[2019-12-31] VITALS: BP 115/53
--- NOTE | 2019-12-31 02:42 | NUR ---
PT. RESTING IN BED IN NO DISTRESS. CALL LIGHT REMAINS WITHIN REACH. VOICES NO COMPLAINTS OR NEEDS AT THIS TIME. IV FLUIDS INFUSING ORDERED. WILL CONTINUE TO ASSESS.
--- NOTE | 2019-12-31 04:45 | NUR ---
PT. REMAINS EASILY AROUSABLE TO LIGHT VERBAL STIMULI. LAB AT BEDSIDE TO DRAW PT. CALL LIGHT REMAINS WITHIN REACH. IV FLUIDS INFUSING ORDERED AT THIS TIME. WILL CONTINUE TO MONITOR.
--- NOTE | 2019-12-31 05:36 | NUR ---
RT AT BEDSIDE TO ADMINISTER NEB TREATMENT.
[2019-12-31 05:39] LABS: MEAN CELL VOLUME 94.7 fL CALC (80.0-100.0); MEAN CORPUSCULAR HGB 32.6 pG CALC (26.0-32.0); MEAN CORPUSCULAR HGB CONC 34.4 g/L CALC (32.0-36.0); RED BLOOD COUNT 2.85 mill/uL (4.70-6.10); RED CELL DISTRI WIDTH 12.8 % (11.5-15.5)
[2019-12-31 05:50] LABS: ANION GAP 10 (6-22 (CALC)); BUN 22 mg/dL (8-23); BUN/CREATININE RATIO 27 (12-20 (CALC)); CARBON DIOXIDE 27 mmol/l (22-30); CHLORIDE 102 mmol/l (95-108); CREATININE 0.8 mg/dL (0.7-1.3); GFR > 60 ML/MIN (>=60 (CALC)); GFR FOR AFR.AMER. > 60 ML/MIN (>=60 (CALC)); POTASSIUM 4.7 mmol/l (3.5-5.1); SODIUM 134 mmol/l (137-146)
[2019-12-31 05:52] LABS: INTERNATIONAL NORMALIZED RATIO 1.3 RATIO (0.7-1.3); PROTHROMBIN TIME 13.4 SECONDS (9.0-12.5)
[2019-12-31 05:58] LABS: HEMOGLOBIN 9.3 g/dl (14.0-18.0)
--- NOTE | 2019-12-31 07:24 | NUR ---
REPORT RECVD FROM RIVAS HERNANDEZ AT START OF SHIFT.
[2019-12-31 08:00] VITALS: BP 104/55
--- NOTE | 2019-12-31 08:38 | NUR ---
DR OAKLEY NOTIFIED OF BLACK STOOL PER PM SHIFT & PTS CLAIM OF COUGHING UP BLOOD THIS AM, AFTER QUESTIONING PT R/T BLOOD ON BLANKET. @BEDSIDE.
--- NOTE | 2019-12-31 08:44 | NUR ---
STATES OK FOR PT TO EAT.
--- NOTE | 2019-12-31 09:08 | NUR ---
LINEN CHANGED. PT STATES HE FELL ASLEEP WITH HIS WATER CUP IN HIS LAP AND SPILLED IT. PT REORIENTED TO TIME.
--- NOTE | 2019-12-31 11:30 | NUR ---
PT ASSISTED TO SITTING ON SIDE OF BED WITH MODERATE ASSISTANCE.
[2019-12-31 12:00] VITALS: BP 110/61
--- NOTE | 2019-12-31 14:37 | NUR ---
PT OBSERVED PT STANDING BY BED, KNOCKING EVERYTHING DOWN, & PULLING OFF MONITORING EQUIPMENT. UPON ENTERING ROOM, PT STATED HE WAS JUST TRYING TO PLUG IN HIS PHONE. PT REMINDED TO CALL STAFF BEFORE GETTING OUT OF BED.
[2019-12-31 16:00] VITALS: BP 101/55
--- NOTE | 2019-12-31 16:39 | NUR ---
PT ASSISTED UP TO BATHROOM FOR POSSIBLE BM, HAT PLACED IN TOILET FOR STOOL COLLECTION.
--- NOTE | 2019-12-31 18:45 | NUR ---
REPORT FROM Suellen CHAPIN RN. ASSUMED PT. CARE.
--- NOTE | 2019-12-31 19:35 | NUR ---
PT. FOUND SITTING UP IN BED AT BEDSIDE IN NO DISTRESS. AWAKE, ALERT, ORIENTED X 3. SKIN WARM AND DRY. AFEBRILE. PEÑA. CAMILO. PT. DENIES COMPLAINTS OF PAIN OR NEED AT THIS TIME. LUNGS CTA. SLIGHTLY DIMINISHED BASES. BOWEL SOUNDS ACTIVE. PT. AWARE OF NEED FOR STOOL SPECIMEN. ABD SOFT AND NON-TENDER. PT. NOTED TO BE IN A-FIB, RATE CONTROLLED. RESPS EVEN AND UNLABORED. 1+ LOWER EXT EDEMA NOTED. VARIOUS AREAS OF SCABBING NOTED OVER ENTIRE BODY, BUT NO BLEEDING NOTED AT THIS TIME. DISTIL PULSES WEAK AND DISCOLORATION NOTED TO LOWER EXT. CALL LIGHT WITHIN REACH. WILL CONTINUE TO CLOSELY MONITOR.
[2019-12-31 19:42] VITALS: BP 114/62
--- NOTE | 2019-12-31 20:44 | NUR ---
PT. METOPROLOL HELD AT THIS TIME LAST BP'S WERE MID 80'S AND 115 SYSTOLIC. PT. HR IN THE MID 60'S. WILL CONTINUE TO MONITOR AT THIS TIME FOR HR/BP INCREASES
--- NOTE | 2019-12-31 23:01 | NUR ---
PT. RESTING IN BED WITH EVEN, UNLABORED RESPIRATION. EYE CLOSED IN NO DISTRESS. B/P, HR STABLE. RHYTHM REMAINS A-FIB WITH RATE CONTROLLED IN THE 50-60'S. CALL LIGHT REMAINS WITHIN REACH. WILL CONTINUE TO MONITOR.
[2019-12-31 23:57] VITALS: BP 102/65
[2020-01-01] VITALS (7 sets, daily range): BP systolic 90–116; BP diastolic 55–68
--- NOTE | 2020-01-01 02:15 | NUR ---
PT. RESTING IN BED WITH EYES CLOSED IN NO DISTRESS. RESPS REMAIN EVEN AND UNLABORED. REMAINS IN A-FIB RATE CONTROLLED. BP/HR STABLE. CALL LIGHT REMAINS WITHIN REACH.
--- NOTE | 2020-01-01 04:36 | NUR ---
LAB AT BEDSIDE AT THIS TIME TO DRAW PATIENT. PT. PLACED ON BEDPAN AT THIS TIME. LINENS REPOSITIONED IN BED FOR COMFORT. CALL LIGHT REMAINS WITHIN REACH.
--- NOTE | 2020-01-01 04:37 | NUR ---
PT. REMAINS EASILY AROUSABLE TO LIGHT VERBAL STIMULI. LAB AT BEDSIDE AT THIS TIME TO DRAW PATIENT. PT. VOICES NO COMPLAINTS OR NEEDS. WILL CONTINUE TO CLOSELY MONITOR.
[2020-01-01 05:10] LABS: HEMATOCRIT 27.6 % (39.0-50.0); HEMOGLOBIN 9.3 g/dl (14.0-18.0); MEAN CELL VOLUME 95.8 fL CALC (80.0-100.0); MEAN CORPUSCULAR HGB 32.3 pG CALC (26.0-32.0); MEAN CORPUSCULAR HGB CONC 33.7 g/L CALC (32.0-36.0); RED BLOOD COUNT 2.88 mill/uL (4.70-6.10); RED CELL DISTRI WIDTH 12.7 % (11.5-15.5)
[2020-01-01 05:21] LABS: INTERNATIONAL NORMALIZED RATIO 1.6 RATIO (0.7-1.3); PROTHROMBIN TIME 16.1 SECONDS (9.0-12.5)
[2020-01-01 05:24] LABS: ANION GAP 11 (6-22 (CALC)); BUN 18 mg/dL (8-23); BUN/CREATININE RATIO 22 (12-20 (CALC)); CARBON DIOXIDE 29 mmol/l (22-30); CHLORIDE 99 mmol/l (95-108); CREATININE 0.8 mg/dL (0.7-1.3); GFR > 60 ML/MIN (>=60 (CALC)); GFR FOR AFR.AMER. > 60 ML/MIN (>=60 (CALC)); POTASSIUM 4.4 mmol/l (3.5-5.1); SODIUM 135 mmol/l (137-146)
--- NOTE | 2020-01-01 05:55 | NUR ---
PT. REMAINS STABLE ON THE MONITOR. RESPS EVEN AND UNLABORED. BP/HR STABLE. REMAINS IN A-FIB RATE CONTROLLED. CALL LIGHT WITHIN REACH. PROVIDED WITH COFFEE PER HIS REQUEST. WILL CONTINUE TO MONITOR.
--- NOTE | 2020-01-01 07:00 | NUR ---
RECVD REPORT FROM RIVAS HERNANDEZ @START OF SHIFT.
--- NOTE | 2020-01-01 09:32 | NUR ---
RT @BEDSIDE FOR BREATHING TREATMENT.
--- NOTE | 2020-01-01 10:16 | NUR ---
PT ASSISTED x1 TO TOILET FOR POSSIBLE BM. PT STATES "ONLY GAS".
--- NOTE | 2020-01-01 11:30 | NUR ---
PT SITTING UP ON SIDE OF BED, EATING LUNCH. NO NEEDS/CONCERNS AT THIS TIME. PT CONTINUES TO BE FRIENDLY WITH STAFF. REMINDED PT TO CALL FOR ASSISTANCE BEFORE GETTING OUT OF BED.
--- NOTE | 2020-01-01 14:37 | NUR ---
PT SET UP FOR SELF BATH. LINENS & GOWN CHANGED.
--- NOTE | 2020-01-01 15:30 | NUR ---
PT HAD LARGE BLACK FORMED BM. SAMPLE SENT TO LAB.
--- NOTE | 2020-01-01 16:15 | NUR ---
PT STATES "FUNNY STORY- HE HAD TO GO PISS BUT HE STUMBLED A LITTLE AND HIS RE FLOPPED AROUND AND GOT HIS UNDIES WET." PT STATES HIS FRIEND IS SUPPOSED TO BRING HIM SOME NEW "UNDIES".
--- NOTE | 2020-01-01 17:37 | NUR ---
RT @BEDSIDE FOR BREATHING TREATMENT
--- NOTE | 2020-01-01 18:14 | NUR ---
DR OAKLEY NOTIFIED OF +OCCULT RESULT.
--- NOTE | 2020-01-01 18:19 | NUR ---
PER DR OAKLEY, HOLD COUMADIN RE: +OCCULT. ORDER FAXED TO .
--- NOTE | 2020-01-01 19:22 | NUR ---
REPORT RECEIVED FROM RIVAS DESHPANDE. PT SITTING UP IN BED WATCHING TV; ALERT AND ORIENTED X 3. C/O 3/10 LEFT UPPER LEG PAIN; ENCOURAGED REPOSITIONING. RESPIRATIONS EVEN AND UNLABORED ON ROOM AIR. LUNGS HAVE EXPIRATORY RHONCHI. HEART RATE IRREGULAR; AFIB ON TELEMETRY WITH RATE OF 72. SCATTERED LESIONS TO OVERALL BODY; NO DRAINAGE NOTED. COBAN DRESSING TO LLE CDI; SCATTERED ECCHYMOSIS TO ALL EXTREMITIES. PLAN OF CARE REVIEWED. PT ENCOURAGED TO VERBALIZE CONCERNS. STATES UNDERSTANDING. SAFETY MEASURES IN PLACE. CALL LIGHT WITHIN REACH.
--- NOTE | 2020-01-01 21:00 | NUR ---
METOPROLOL HELD FOR LOW HR AND PULSE.
--- NOTE | 2020-01-01 22:55 | NUR ---
PT ASLEEP WITH NO SIGNS OF DISTRESS. RESPIRATIONS EVEN AND UNLABORED ON ROOM AIR. VOIDING CLEAR YELLOW URINE IN URINAL. IV SITE APPEARS HEALTHY AND FLUSHES. REMAINS AFIB HR 50S-70S. CALL LIGHT WITHIN REACH.
[2020-01-02] VITALS (11 sets, daily range): BP systolic 98–148; BP diastolic 51–71
--- NOTE | 2020-01-02 02:15 | NUR ---
PT REPOSITIONING HIMSELF IN BED; NO CHANGES IN CONDITION.
--- NOTE | 2020-01-02 04:46 | NUR ---
LAB AT BEDSIDE.
--- NOTE | 2020-01-02 05:03 | NUR ---
RT AT BEDSIDE FOR BREATHING TREATMENT.
[2020-01-02 05:09] LABS: HEMATOCRIT 28.9 % (39.0-50.0); HEMOGLOBIN 9.9 g/dl (14.0-18.0); MEAN CELL VOLUME 95.1 fL CALC (80.0-100.0); MEAN CORPUSCULAR HGB 32.6 pG CALC (26.0-32.0); MEAN CORPUSCULAR HGB CONC 34.3 g/L CALC (32.0-36.0); RED BLOOD COUNT 3.04 mill/uL (4.70-6.10); RED CELL DISTRI WIDTH 12.7 % (11.5-15.5)
[2020-01-02 05:30] LABS: PROTHROMBIN TIME 38.1 SECONDS (9.0-12.5)
[2020-01-02 05:31] LABS: INTERNATIONAL NORMALIZED RATIO 3.9 RATIO (0.7-1.3)
--- NOTE | 2020-01-02 07:50 | NUR ---
ASSESSMENT IS COMPLTED: IV SITE IS FREE FROM REDNESS OR EDEMA. HR IS REG,PULSES ARE STRONG X4, ABD IS SOFT WITH ACTIVE BS.BREATH SOUNDS ARE CLEAR, BILATERALLY., CONTINUE TO OSBERVE AND MONITOR.
--- NOTE | 2020-01-02 10:00 | NUR ---
PT HAS BEEN RELAXING IN BED WITH NO DISTRESS NTOED. IV SITE IS FREE FROM REDNESS OR EDEMA.
--- NOTE | 2020-01-02 12:00 | NUR ---
PT IS RELAXING AND WAITING ON VISITORS. SIGNED CONSENT FOR RECORDS RELEASE..
--- NOTE | 2020-01-02 14:00 | NUR ---
PT IS RELAXING IN BED WITH NO DISTRESS NOTED. IV SITE IS FREE FROM REDNESS OR EDEMA.
--- NOTE | 2020-01-02 16:00 | NUR ---
pt is relaxing in bed with no distress noted. iv site is free from redness or edema. pt attempting to have a bm
--- NOTE | 2020-01-02 17:32 | NUR ---
LATESHA FERRARA FROM DR WEEKS'S OFFICE INQUIRED IF PT CONTINUED TO DRINK ALCOHOL. WAS INFORMED THAT HE DOESN'T DRINK ANY MORE.
--- NOTE | 2020-01-02 18:00 | NUR ---
pt is attempting to have a bm. was given medication for it.
--- NOTE | 2020-01-02 19:30 | NUR ---
patient lays with hob 30 degrees. alert, awake, oriented x4. on ra, no sob noted. head to toe nursing assessment performed. lac 20g iv intact. afib on tele, hr ranges 70-80 bpm. poc for tonight discussed. voids in urinal, 150 ml urine emptied, yellow/clear. self repositions. call light within reach.
--- NOTE | 2020-01-02 20:24 | NUR ---
PT ABLE TO TOLERATE HIS BEDTIME MEDICATIONS. TYLENOL GIVEN PER REQUEST FOR L-THIGH PAIN, PT STATES, "UNCOMFORTABLE." CALL LIGHT WITHIN REACH.
--- NOTE | 2020-01-02 21:20 | NUR ---
PT LAYS WITH HOB 30 DEGREES, TURNED TV OFF. NO ACUTE DISTRES SHOWN. NO NEEDS AT THIS TIME. CALL LIGHT WITHIN REACH.
--- NOTE | 2020-01-02 23:52 | NUR ---
pt lays with hob near 30 degrees. rests with eyes closed. call light within reach.
[2020-01-03] VITALS: BP 154/77
--- NOTE | 2020-01-03 03:47 | NUR ---
PT LAYS SUPINE. AWAKENS WITH NOISE. URINAL EMPTIED. NO ACUTE DISTRESS SHOWN. NO NEEDS OR COMPLAINTS AT THIS TIME. CALL LIGHT WITHIN REACH.
[2020-01-03 04:03] VITALS: BP 133/64
[2020-01-03 05:25] LABS: INTERNATIONAL NORMALIZED RATIO 6.8 RATIO (0.7-1.3); PROTHROMBIN TIME 64.8 SECONDS (9.0-12.5)
[2020-01-03 05:35] LABS: ALBUMIN 3.3 g/dL (3.2-5.0); ALKALINE PHOSPHATASE 83 u/l (38-126); ANION GAP 12 (6-22 (CALC)); BILIRUBIN, TOTAL 1.4 mg/dL (0.0-1.4); BUN 21 mg/dL (8-23); BUN/CREATININE RATIO 27 (12-20 (CALC)); CARBON DIOXIDE 25 mmol/l (22-30); CHLORIDE 103 mmol/l (95-108); CREATININE 0.8 mg/dL (0.7-1.3); GFR > 60 ML/MIN (>=60 (CALC)); GFR FOR AFR.AMER. > 60 ML/MIN (>=60 (CALC)); POTASSIUM 4.6 mmol/l (3.5-5.1); SGOT/AST 32 u/l (19-48); SODIUM 135 mmol/l (137-146); TOTAL PROTEIN 6.4 g/dL (6.3-8.2)
--- NOTE | 2020-01-03 05:40 | NUR ---
PT LAYS SUPINE. AWAKENS EASILY. NO ACUTE DISTRESS SHOWN. CALL LIGHT WITHIN REACH.
--- NOTE | 2020-01-03 06:14 | NUR ---
URINAL EMPTIED OUT. PT AWAKE. CONVERSATES AND LAUGHS. NO NEEDS AT THIS TIME. CALL LIGHT WITHIN REACH.
--- NOTE | 2020-01-03 07:09 | NUR ---
recieved report from night rn, vss, no s/s of distress noted, pt resting in bed. will continue to monitor.
[2020-01-03 08:00] VITALS: BP 127/69
--- NOTE | 2020-01-03 08:00 | NUR ---
PT SITTING AT EDGE OF BED EATING BREAKFAST, VSS, NO C/O AT THIS TIME, WILL CONTINUE TO MONITOR.
--- NOTE | 2020-01-03 10:00 | NUR ---
PT SITTING IN CHAIR, VSS, NO C/O PAIN, LINENS CHANGED, PT BATHED SELF, HAD BM, MEDICATED PER EMAR, NEEDS ATTENDED TOO, WILL CONTINUE TO MONITOR
[2020-01-03 12:00] VITALS: BP 108/58
--- NOTE | 2020-01-03 12:00 | NUR ---
PT STILL IN CHAIR, ATE LUNCH, VSS
--- NOTE | 2020-01-03 14:00 | NUR ---
PT ASSISTED TO BATHROOM, THEN BACK TO BED, HAD BM,VSS, WILL CONTINUE TO MONITOR
--- NOTE | 2020-01-03 16:00 | NUR ---
PT RESTING IN BED, CALL LIG WITH IN REACH
--- NOTE | 2020-01-03 18:00 | NUR ---
VSS, NO S/S OF DISTRESS NOTED, WILL CONTINUE TO MONITOR
--- NOTE | 2020-01-03 18:58 | NUR ---
pt preparation operator light, he wanted his bp cuff back on after using the bathroom. pt able to pull himself up with verbal cueing. now lays with hob near 30 degrees. call light within reach.
--- NOTE | 2020-01-03 19:20 | NUR ---
PT IS AWAKE, ALERT. ON RA, NO SOB NOTED, DENIES N/V/D, DENIES SOB. HEAD TO TOE NURSING ASSESSMENT PERFORMED. LAC 20 G IV INTACT, SL'D. AFIB ON TELE. AFEBRILE. HR RANGES 60'S TO 80'S. WATCHES TV. POC FOR TONIGHT DISCUSSED. USES URINAL. CALL LIGHT WITHIN REACH.
[2020-01-03 20:00] VITALS: BP 102/55
--- NOTE | 2020-01-03 21:00 | NUR ---
PT ABLE TO TOLERATE HIS BEDTIME MEDICATION, TYLENOL GIVEN FOR L-THIGH PAIN. NO NEEDS AT THIS TIME. CALL LIGHT ITHIN REACH.
--- NOTE | 2020-01-03 21:11 | NUR ---
PATIENT ABLE TO TOLERATE HER BEDTIME MEDICATIONS. NO COMPLAINTS OF PAIN. PATIENT REPOSITIONED HERSELF. NOWMLAYS ON HER LEFT SIDE. CPAP ON NOW. CALL LIGHT WITHIN REACH.
--- NOTE | 2020-01-03 23:37 | NUR ---
PT LAYS WITH HOB NEAR 30 DEGREES. RESTS WITH EYES CLOSED. CALL LIGHT WITHIN REACH.
[2020-01-04] VITALS: BP 126/61
[2020-01-04 04:00] VITALS: BP 113/62
--- NOTE | 2020-01-04 04:12 | NUR ---
PT SITS ON SIDE OF BED TO USE URINAL. NO ACUTES DISTRESS SHOWN. CALL LIGHT WITHIN REACH.
[2020-01-04 04:51] LABS: HEMATOCRIT 31.5 % (39.0-50.0); HEMOGLOBIN 10.6 g/dl (14.0-18.0); MEAN CORPUSCULAR HGB 32.3 pG CALC (26.0-32.0); MEAN CORPUSCULAR HGB CONC 33.7 g/L CALC (32.0-36.0); RED BLOOD COUNT 3.28 mill/uL (4.70-6.10); RED CELL DISTRI WIDTH 13.5 % (11.5-15.5)
[2020-01-04 05:20] LABS: INTERNATIONAL NORMALIZED RATIO 1.5 RATIO (0.7-1.3); PROTHROMBIN TIME 15.4 SECONDS (9.0-12.5)
--- NOTE | 2020-01-04 06:45 | NUR ---
RECIEVED REPORT FROM RIVAS GRAY. ASSUMED PT CARE.
[2020-01-04 08:00] VITALS: BP 114/78
--- NOTE | 2020-01-04 08:00 | NUR ---
PT A&0X4, ABLE TO MAKE NEEDS KNOWN. PT DENIES CP, SOB, OR DISTRESS AT THIS TIME. AFIB ON TELEMETRY, HR 98. RESPIRATIONS EVEN/UNLABORED, SA02@98% RA. LS CLEAR/DIMINISHED, ABDOMEN DISTENDED, NON-TENDER. PT REPORTS LAST BM 2-7-20. PT STATED NO BLOOD NOTED IN LAST BM. CALL LIGHT IN REACH. WILL MONITOR.
[2020-01-04 08:12] VITALS: BP 114/78
[2020-01-04 10:24] VITALS: BP 116/57
--- NOTE | 2020-01-04 10:56 | NUR ---
PT RESTING IN BED, NO ACTIVE BLEEDING NOTED AT THIS TIME. RESPIRATIONS EVEN/UNLBORED. AFIB CONTINUES ON TELEMETRY, HR 90. CALL LIGHT IN REACH. WILL MONITOR.
[2020-01-04] MEDS ORDERED: XARELTO15 MG PO (12:15)
--- NOTE | 2020-01-04 12:30 | NUR ---
ATTEMPTED TO CALL CM, NO ANSWER.
[2020-01-04 12:42] VITALS: BP 121/57
--- NOTE | 2020-01-04 13:00 | NUR ---
IV site discontinued, cath intact. No edema , no redness, voices no discomfort.
--- NOTE | 2020-01-04 13:18 | NUR ---
CALLED [facility] FOR UPDATE ON HH. PT REQUEST [facility] HE HAS HAD THEM IN THE PAST. LEFT MESSAGE TO THAT EFFECT.
--- NOTE | 2020-01-04 13:22 | NUR ---
Discharge instructions given. Patient verbalizes understanding of same. Discharged in stable condition via Wheelchair to Home with family. All belongings sent with pt. [facility] TO CALL AND SET UP HH WITH [facility] AT PT REQUEST.
== END 2020-01-04 13:22 | DRG 813 ==
LOC: ED 06:37 → ED-I 10:00 → ED 10:26 → MS2 10:27 → ICU 11:36
PROVIDERS: Family Medicine; Nurse Practitioner Family; ADMIT Internal Medicine; ATTEND Internal Medicine
PROC: 30233K1 Transfusion of Nonautologous Frozen Plasma into Peripheral Vein, Percutaneous Approach (ICD-10-PCS; principal; 2019-12-30)
PROC: 30233K1 Transfusion of Nonautologous Frozen Plasma into Peripheral Vein, Percutaneous Approach (ICD-10-PCS; 2019-12-30)
DX: D68.32 Hemorrhagic disorder due to extrinsic circulating anticoagulants (principal); I50.22 Chronic systolic (congestive) heart failure; R23.3 Spontaneous ecchymoses; R19.5 Other fecal abnormalities; R04.0 Epistaxis; K13.79 Other lesions of oral mucosa; T45.515A Adverse effect of anticoagulants, initial encounter; I11.0 Hypertensive heart disease with heart failure; I48.0 Paroxysmal atrial fibrillation; I27.20 Pulmonary hypertension, unspecified; M19.90 Unspecified osteoarthritis, unspecified site; M10.9 Gout, unspecified; G47.33 Obstructive sleep apnea (adult) (pediatric); Z87.891 Personal history of nicotine dependence

== ENCOUNTER 2020-03-21 | Emergency (ER) | payer MEDICARE ==
[~2020-03-21] MED LIST changes: +JANTOVEN5 MG PO; +SPIRONOLACT25 MG PO; +XARELTO15 MG PO
== END 2020-03-21 21:58 | disposition home or self-care (01) ==
DX: S51.012A Laceration without foreign body of left elbow, initial encounter (principal); S80.211A Abrasion, right knee, initial encounter; T14.8XXA Other injury of unspecified body region, initial encounter; I10 Essential (primary) hypertension; Y04.2XXA Assault by strike against or bumped into by another person, initial encounter; Y92.008 Other place in unspecified non-institutional (private) residence as the place of occurrence of the external cause

== ENCOUNTER 2020-07-23 09:01 | Emergency (ER) | payer MEDICARE ==
[~2020-07-23] VITALS: Ht 172.7 cm; Wt 90.9 kg
[2020-07-23 09:36] LABS: HEMOGLOBIN 12.5 g/dl (14.0-18.0); IMMATURE GRANULOCYTES 0.6 % (0.0-5.0); MEAN CELL VOLUME 99.7 fL CALC (80.0-100.0); MEAN CORPUSCULAR HGB CONC 33.1 g/dL CAL (32.0-36.0); NEUT# 4.63 thou/uL (1.82-7.42); RED BLOOD COUNT 3.79 mill/uL (4.70-6.10); RED CELL DISTRI WIDTH 12.2 % (11.5-15.5)
[2020-07-23 09:47] LABS: HEMATOCRIT 37.8 % (39.0-50.0)
[2020-07-23 10:05] LABS: ANION GAP 14 (6-22 (CALC)); BUN 34 mg/dL (8-23); BUN/CREATININE RATIO 29 (12-20 (CALC)); CARBON DIOXIDE 24 mmol/l (22-30); CHLORIDE 99 mmol/l (95-108); CREATININE 1.2 mg/dL (0.7-1.3); GFR 58 ML/MIN (>=60 (CALC)); GFR FOR AFR.AMER. > 60 ML/MIN (>=60 (CALC)); POTASSIUM 4.8 mmol/l (3.5-5.1); SODIUM 132 mmol/l (137-146)
[2020-07-23 13:35] VITALS: BP 100/62
== END 2020-07-23 13:35 | disposition home or self-care (01) ==
LOC: ED 09:01
PROVIDERS: Family Medicine
DX: T60.91XA Toxic effect of unspecified pesticide, accidental (unintentional), initial encounter (principal); R06.02 Shortness of breath; I11.0 Hypertensive heart disease with heart failure; I50.9 Heart failure, unspecified; Y92.009 Unspecified place in unspecified non-institutional (private) residence as the place of occurrence of the external cause

== ENCOUNTER 2020-09-23 21:27 | Emergency (ER) | payer MEDICARE ==
[~2020-09-23] VITALS: Ht 172.7 cm; Wt 68.1 kg
[2020-09-23] MEDS ORDERED: LASIX 40 MG TAB40 MG PO (21:59)
[2020-09-23] MEDS ORDERED: LISINOPRIL20 M1 PO (22:00)
[2020-09-23] MEDS ORDERED: ALLOPURINOL100 MG PO (22:00)
[2020-09-23 22:09] LABS: HEMATOCRIT 40.5 % (39.0-50.0); HEMOGLOBIN 13.3 g/dl (14.0-18.0); IMMATURE GRANULOCYTES 0.7 % (0.0-5.0); MEAN CORPUSCULAR HGB 33.5 pG CALC (26.0-32.0); MEAN CORPUSCULAR HGB CONC 32.8 g/dL CAL (32.0-36.0); NEUT# 16.57 thou/uL (1.82-7.42); RED BLOOD COUNT 3.97 mill/uL (4.70-6.10); RED CELL DISTRI WIDTH 13.3 % (11.5-15.5)
[2020-09-23 23:30] LABS: TOTAL PROTEIN 7.1 g/dL (6.3-8.2)
[2020-09-23 23:42] LABS: BILIRUBIN, TOTAL 0.8 mg/dL (0.0-1.4)
[2020-09-23 23:43] LABS: CREATININE 9.7 mg/dL (0.7-1.3); POTASSIUM 8.1 mmol/l (3.5-5.1)
[2020-09-24 00:22] LABS: URINE BILIRUBIN - DIPSTICK NEGATIVE (NEGATIVE); URINE BLOOD DIPSTICK SMALL (NEGATIVE); URINE COLOR YELLOW; URINE GLUCOSE - DIPSTICK NEGATIVE (NEGATIVE); URINE KETONE NEGATIVE (NEGATIVE); URINE NITRITE - DIPSTICK NEGATIVE (Negative); URINE PROTEIN - DIPSTICK NEGATIVE (NEG-TRACE); URINE UROBILINOGEN - DIPSTICK 0.2 E.U./dL (0.2)
[2020-09-24 00:24] LABS: URINE LEUK ESTERASE NEGATIVE (NEGATIVE)
[2020-09-24 00:25] LABS: URINE BACTERIA FEW hpf; URINE EPITHELIAL CELLS FEW EPI/hpf (0-FEW)
[2020-09-24 00:26] LABS: URINE MUCUS MANY hpf (NONE-FEW)
[2020-09-24 02:15] LABS: PROTHROMBIN TIME 10.4 SECONDS (9.0-12.5)
[2020-09-24 02:23] LABS: ALBUMIN 3.4 g/dL (3.2-5.0); BILIRUBIN, TOTAL 0.7 mg/dL (0.0-1.4); TOTAL PROTEIN 6.2 g/dL (6.3-8.2)
[2020-09-24 02:32] LABS: POTASSIUM 6.4 mmol/l (3.5-5.1)
[2020-09-24 02:33] LABS: CREATININE 8.8 mg/dL (0.7-1.3)
[2020-09-24 02:48] VITALS: BP 114/55
== END 2020-09-24 02:48 | disposition short-term general hospital (02) ==
LOC: ED 21:27
PROVIDERS: Emergency Medicine
DX: N17.9 Acute kidney failure, unspecified (principal); E86.0 Dehydration; E87.5 Hyperkalemia; M62.82 Rhabdomyolysis; D72.829 Elevated white blood cell count, unspecified; I48.91 Unspecified atrial fibrillation; I11.0 Hypertensive heart disease with heart failure; I50.9 Heart failure, unspecified; I95.9 Hypotension, unspecified; Z20.828 Contact with and (suspected) exposure to other viral communicable diseases

== ENCOUNTER 2021-05-22 16:05 | Emergency (ER) | payer MEDICARE ==
[~2021-05-22] VITALS: Ht 172.7 cm; Wt 88.6 kg
[2021-05-22 17:04] LABS: IMMATURE GRANULOCYTES 0.3 % (0.0-5.0); MEAN CORPUSCULAR HGB 22.7 pG CALC (26.0-32.0); MEAN CORPUSCULAR HGB CONC 27.1 g/dL CAL (32.0-36.0); NEUT# 4.3 thou/uL (1.82-7.42); RED BLOOD COUNT 2.03 mill/uL (4.70-6.10); RED CELL DISTRI WIDTH 19.6 % (11.5-15.5)
[2021-05-22 17:06] LABS: HEMOGLOBIN 4.6 g/dl (14.0-18.0); MEAN CELL VOLUME 83.7 fL CALC (80.0-100.0)
[2021-05-22 17:10] LABS: ALBUMIN 3.5 g/dL (3.2-5.0); ALKALINE PHOSPHATASE 71 u/l (38-126); BILIRUBIN, TOTAL 0.5 mg/dL (0.0-1.4); LIPASE 30 u/l (23-300); SGOT/AST 22 u/l (19-48); TOTAL PROTEIN 6.6 g/dL (6.3-8.2)
[2021-05-22 17:13] LABS: ANION GAP 17 (6-22 (CALC)); BUN 42 mg/dL (8-23); BUN/CREATININE RATIO 28 (12-20 (CALC)); CARBON DIOXIDE 21 mmol/l (22-30); CHLORIDE 92 mmol/l (95-108); CREATININE 1.5 mg/dL (0.7-1.3); GFR 45 ML/MIN (>=60 (CALC)); GFR FOR AFR.AMER. 54 ML/MIN (>=60 (CALC)); POTASSIUM 4.5 mmol/l (3.5-5.1); SODIUM 125 mmol/l (137-146)
[2021-05-22 17:20] LABS: URINE BILIRUBIN - DIPSTICK NEGATIVE (NEGATIVE); URINE BLOOD DIPSTICK NEGATIVE (NEGATIVE); URINE COLOR YELLOW; URINE GLUCOSE - DIPSTICK NEGATIVE (NEGATIVE); URINE KETONE NEGATIVE (NEGATIVE); URINE LEUK ESTERASE NEGATIVE (NEGATIVE); URINE PROTEIN - DIPSTICK NEGATIVE (NEG-TRACE); URINE SPECIFIC GRAVITY 1.015; URINE UROBILINOGEN - DIPSTICK 0.2 E.U./dL (0.2)
[2021-05-22 17:21] LABS: URINE NITRITE - DIPSTICK NEGATIVE (Negative)
[2021-05-22 17:23] LABS: ACT PARTIAL THROMBO TIME 38.2 SECONDS (20.0-32.5)
[2021-05-22 17:27] LABS: INTERNATIONAL NORMALIZED RATIO 1.6 RATIO (0.7-1.3); PROTHROMBIN TIME 16.4 SECONDS (9.0-12.5)
[2021-05-22] MEDS ORDERED: TAMSULOSIN0.4 MG PO (17:43)
[2021-05-22] MEDS ORDERED: ACETAMIN500 M2 PO (17:45)
[2021-05-22] MEDS ORDERED: IPRATROPIU0.5 MG/3 M IN (17:45)
[2021-05-22 18:20] VITALS: BP 105/54
[2021-05-22 18:35] VITALS: BP 94/42
[2021-05-22 19:45] VITALS: BP 93/50
[2021-05-22 21:33] VITALS: BP 97/51
== END 2021-05-22 21:33 | disposition short-term general hospital (02) ==
LOC: ED 16:05
PROC: 30233N1 Transfusion of Nonautologous Red Blood Cells into Peripheral Vein, Percutaneous Approach (ICD-10-PCS; principal; 2021-05-22)
DX: R06.02 Shortness of breath (principal); D64.9 Anemia, unspecified; K92.2 Gastrointestinal hemorrhage, unspecified; E87.1 Hypo-osmolality and hyponatremia; I48.91 Unspecified atrial fibrillation; I11.0 Hypertensive heart disease with heart failure; I50.9 Heart failure, unspecified; M10.9 Gout, unspecified; Z79.01 Long term (current) use of anticoagulants; Z20.822 Contact with and (suspected) exposure to COVID-19
CPT/HCPCS: P9016

== ENCOUNTER 2021-07-31 12:12 | Observation (INO) | payer MEDICARE ==
[~2021-07-31] VITALS: Ht 172.7 cm; Wt 79.0 kg
[~2021-07-31 12:12] MED LIST changes: +ACETAMIN500 M2 PO; +IPRATROPIU0.5 MG/3 M IN; +TAMSULOSIN0.4 MG PO
--- NOTE | 2021-07-31 12:28 | NUR ---
TO ROOM FOR TRIAGE
[2021-07-31 13:47] LABS: IMMATURE GRANULOCYTES 0.4 % (0.0-5.0); MEAN CORPUSCULAR HGB 27.9 pG CALC (26.0-32.0); MEAN CORPUSCULAR HGB CONC 30.8 g/dL CAL (32.0-36.0); NEUT# 3.92 thou/uL (1.82-7.42); RED BLOOD COUNT 3.41 mill/uL (4.70-6.10); RED CELL DISTRI WIDTH 22.5 % (11.5-15.5)
[2021-07-31 14:00] LABS: ACT PARTIAL THROMBO TIME 40.5 SECONDS (20.0-32.5); INTERNATIONAL NORMALIZED RATIO 1.5 RATIO (0.7-1.3)
[2021-07-31 14:03] LABS: ALBUMIN 3.3 g/dL (3.2-5.0); ALKALINE PHOSPHATASE 84 u/l (38-126); AMYLASE 44 u/l (30-110); ANION GAP 14 (6-22 (CALC)); BILIRUBIN, TOTAL 0.5 mg/dL (0.0-1.4); BUN 27 mg/dL (8-23); BUN/CREATININE RATIO 17 (12-20 (CALC)); CARBON DIOXIDE 19 mmol/l (22-30); CHLORIDE 102 mmol/l (95-108); CREATININE 1.6 mg/dL (0.7-1.3); GFR 42 ML/MIN (>=60 (CALC)); GFR FOR AFR.AMER. 50 ML/MIN (>=60 (CALC)); LIPASE 39 u/l (23-300); POTASSIUM 5.1 mmol/l (3.5-5.1); SGOT/AST 29 u/l (19-48); SODIUM 130 mmol/l (137-146); TOTAL PROTEIN 6.7 g/dL (6.3-8.2)
[2021-07-31 14:09] LABS: HEMATOCRIT 30.8 % (39.0-50.0); HEMOGLOBIN 9.5 g/dl (14.0-18.0); MEAN CELL VOLUME 90.3 fL CALC (80.0-100.0)
[2021-07-31 15:23] LABS: URINE BILIRUBIN - DIPSTICK NEGATIVE (NEGATIVE); URINE BLOOD DIPSTICK NEGATIVE (NEGATIVE); URINE COLOR YELLOW; URINE GLUCOSE - DIPSTICK NEGATIVE (NEGATIVE); URINE KETONE NEGATIVE (NEGATIVE); URINE LEUK ESTERASE NEGATIVE (NEGATIVE); URINE PH 5.5 (4.5-8.0); URINE PROTEIN - DIPSTICK NEGATIVE (NEG-TRACE); URINE UROBILINOGEN - DIPSTICK 0.2 E.U./dL (0.2)
[2021-07-31 15:29] LABS: URINE NITRITE - DIPSTICK NEGATIVE (Negative)
--- NOTE | 2021-07-31 15:42 | NUR ---
Reassessment of patient completed. No distress noted.
--- NOTE | 2021-07-31 16:21 | NUR ---
Reassessment of patient completed. No distress noted.
--- NOTE | 2021-07-31 19:00 | NUR ---
REPORT TO FERNIE RN
--- NOTE | 2021-07-31 19:30 | NUR ---
A/OX3 CLEAR SPEECH NO FOCAL DEFICITS W/P/D SKIN VOIDS 200CC SANDEE URINE.IV FLUIDS ARE COMPLETED NO C/O PAIN
--- NOTE | 2021-07-31 21:24 | NUR ---
NO COUGH NO CONGESTION NO FOCAL DEFICITS GCS REMAINS 15 SPEECH CLEAR
[2021-08-01] VITALS (9 sets, daily range): BP systolic 91–118; BP diastolic 52–81
--- NOTE | 2021-08-01 00:35 | NUR ---
PT REQ PO NOURISHMENT EATS PUDDING AND SOME LO FAT MILK
--- NOTE | 2021-08-01 02:34 | NUR ---
AWAKENED FROM SLEEP W/P/D SKIN NO C/O PAIN GCS 15 NO COUGH OR CONGESTION
[2021-08-01 04:57] LABS: HEMATOCRIT 32.5 % (39.0-50.0); HEMOGLOBIN 10.2 g/dl (14.0-18.0); IMMATURE GRANULOCYTES 0.5 % (0.0-5.0); MEAN CELL VOLUME 90.5 fL CALC (80.0-100.0); MEAN CORPUSCULAR HGB 28.4 pG CALC (26.0-32.0); MEAN CORPUSCULAR HGB CONC 31.4 g/dL CAL (32.0-36.0); NEUT# 2.54 thou/uL (1.82-7.42); RED BLOOD COUNT 3.59 mill/uL (4.70-6.10); RED CELL DISTRI WIDTH 22.6 % (11.5-15.5)
[2021-08-01 05:26] LABS: ALKALINE PHOSPHATASE 78 u/l (38-126); ANION GAP 12 (6-22 (CALC)); BILIRUBIN, TOTAL 0.4 mg/dL (0.0-1.4); BUN 24 mg/dL (8-23); BUN/CREATININE RATIO 22 (12-20 (CALC)); C-REACTIVE PROTEIN 3.8 mg/dL (0-0.9); CARBON DIOXIDE 21 mmol/l (22-30); CHLORIDE 105 mmol/l (95-108); CREATININE 1.1 mg/dL (0.7-1.3); GFR > 60 ML/MIN (>=60 (CALC)); GFR FOR AFR.AMER. > 60 ML/MIN (>=60 (CALC)); SGOT/AST 26 u/l (19-48); SODIUM 132 mmol/l (137-146); TOTAL PROTEIN 6.2 g/dL (6.3-8.2)
[2021-08-01 05:29] LABS: POTASSIUM 5.6 mmol/l (3.5-5.1)
--- NOTE | 2021-08-01 07:10 | NUR ---
PT REPORT TO NURSE TIA
--- NOTE | 2021-08-01 07:54 | NUR ---
PT NOTED RESTING IN BED. NO APPARENT DISTRESS NOTED. 02 SAT 97% ON RA. ALERT AND ORIENTED. PT DENIES ANY PAIN. PT REQUESTING NEB TREATMENT FOR COPD, EDUCATION PROVIDED. PROTECTIVE SIGNAL REPAIRER HELPER WILL ATTEMPT TO GET ORDERS FOR ALTERNATIVE INHALER DUE TO COVID STATUS. NO OTHER CURRENT WANTS OR NEEDS. CALL LIGHT WITHIN REACH. WILL CONTINUE TO MONITOR.
--- NOTE | 2021-08-01 08:32 | NUR ---
ASSISTED PT TO SIDE OF BED FOR BREAKFAST. PT REMAINS ON RA, INHALER PROVIDED WITH TEACHING. IV FLUIDS INITIATED AT THIS TIME. IV SITE TO LAC FLUSHED WELL. CALL LIGHT WITHIN REACH. NO CURRENT WANTS OR NEEDS. CALL LIGHT WITHIN REACH. WILL CONTINUE TO MONITOR.
--- NOTE | 2021-08-01 09:23 | NUR ---
RN AT BEDSIDE TO MEDICATE AND CHANGE LINENS.
--- NOTE | 2021-08-01 09:48 | NUR ---
PATIENT OFFERED WASH TOWEL AND FRESH SHEETS
--- NOTE | 2021-08-01 10:10 | NUR ---
REPORT TO WILMA HATHAWAY
--- NOTE | 2021-08-01 10:28 | NUR ---
MD SHEIKH VISIT THE PATIENT AND EVALUATED HIM WITH THE NURSE PRACTITIONER
--- NOTE | 2021-08-01 12:01 | NUR ---
PT SET UP AT BEDSIDE FOR LUNCH. NO APPARENT DISTRESS NOTED. PT DENIES ANY SOB OR PAIN AT THIS TIME. FRESH WATER PROVIDED. CALL LIGHT WITHIN REACH. WILL CONTINUE TO MONITOR.
--- NOTE | 2021-08-01 13:25 | NUR ---
Reassessment of patient completed. No distress noted.
--- NOTE | 2021-08-01 14:20 | NUR ---
PT CAME UP ACCOMPINIED BY RAVINDRA. PT IN STABLE CONDITION. VITALS AND ASSESSMENT COMPLETED. PT ORIENTED TO ROOM AND CALL LOU SYSTEM. PT INDICATED NO PAIN. IV SITE PATENT AND HEALTHY. PTS SKIN IS DRY AND SCABY. PT HAS A BANDAGE TO HIS LEFT CHEEK NEAR HIS EAR, HE ALSO HAS LITTLE CUTS TO HIS EAR WELL. PT IS ALERT AND ORIENTED. VERY PLEASANT. CALL LIGHT WITHIN REACH.
--- NOTE | 2021-08-01 14:20 | NUR ---
PT TO MS AT THIS TIME AND CARE RELINQUISHED.
--- NOTE | 2021-08-01 14:55 | NUR ---
PT RESTING IN BED ON LEFT SIDE. VSS. NO APPARENT DISTRESS NOTED. SAT 96% ON 15L/M VIA HIGH FLOW NC. CALL LIGHT WITHIN REACH. WILL CONTINUE TO MONITOR.
--- NOTE | 2021-08-01 15:23 | NUR ---
PTS MEDICATION IN THE ER. CALLED PHARMACY THEY WILL BRING IT.
--- NOTE | 2021-08-01 17:15 | NUR ---
PT WAS BROUGHT UP FROM ER ACCOMPINIED BY STAFF. PT IS ALERT AND ORIENTED. ORIENTED HIM TO ROOM AND CALL LIGHT SYSTEM. VITALS AND ASSESSMENT DONE. IV PATENT AND HEALTHY. SKIN IS WARM AND DRY. CALL LIGHT WITHIN REACH.
--- NOTE | 2021-08-01 20:00 | NUR ---
PHYSICAL ASSESMENT COMPLETE. PT CURRENTLY DENIES PAIN OR DISCOMFORT. SCHEDULED MEDICATIONS AND PRN MEDICATION ADMINISTERED, SEE E-MAR. PT DENIES ANY NEEDS AT THIS TIME. PLAN OF CARE REVIEWED, PT DENIES QUESTIONS, VERBALIZES UNDERSTANDING. ITEMS WITHIN REACH, BED LOCKED IN LOW POSITION W/ BEDRAILS UP X2. CALL LOU WITHIN REACH, AGREES TO CALL PRN.
[2021-08-02] VITALS: BP 102/60
--- NOTE | 2021-08-02 00:18 | NUR ---
PT LAYING IN BED WITH EYES CLOSED, APPEARS TO BE SLEEPING, APPEARS COMFORTABLE AND IN NO DISTRESS. RESPIRATIONS REGULAR AND UNLABORED. ITEMS REMAIN WITHIN REACH, CALL LOU REMAINS WITHIN REACH. BED REMAINS LOCKED AND IN LOW POSITION WITH BEDRAILS UP X2. WILL CONTINUE TO MONITOR.
[2021-08-02 04:00] VITALS: BP 112/63
--- NOTE | 2021-08-02 04:00 | NUR ---
PT RESTING IN BED, NO SIGNS OF DISTRESS NOTED, RESP EVEN AND UNLABORED. PT VOICES NO NEEDS OR COMPLAINTS AT THIS TIME. CALL LIGHT IN REACH, CONTINUE TO MONITOR.
[2021-08-02 05:24] LABS: HEMATOCRIT 30.2 % (39.0-50.0); HEMOGLOBIN 9.4 g/dl (14.0-18.0); IMMATURE GRANULOCYTES 0.7 % (0.0-5.0); MEAN CELL VOLUME 90.1 fL CALC (80.0-100.0); MEAN CORPUSCULAR HGB 28.1 pG CALC (26.0-32.0); MEAN CORPUSCULAR HGB CONC 31.1 g/dL CAL (32.0-36.0); NEUT# 1.76 thou/uL (1.82-7.42); RED BLOOD COUNT 3.35 mill/uL (4.70-6.10); RED CELL DISTRI WIDTH 22.3 % (11.5-15.5)
[2021-08-02 05:40] LABS: ALBUMIN 2.7 g/dL (3.2-5.0); ALKALINE PHOSPHATASE 71 u/l (38-126); ANION GAP 10 (6-22 (CALC)); BILIRUBIN, TOTAL 0.4 mg/dL (0.0-1.4); BUN 14 mg/dL (8-23); BUN/CREATININE RATIO 17 (12-20 (CALC)); CARBON DIOXIDE 23 mmol/l (22-30); CHLORIDE 103 mmol/l (95-108); CREATININE 0.8 mg/dL (0.7-1.3); GFR > 60 ML/MIN (>=60 (CALC)); GFR FOR AFR.AMER. > 60 ML/MIN (>=60 (CALC)); SGOT/AST 20 u/l (19-48); SODIUM 132 mmol/l (137-146); TOTAL PROTEIN 5.9 g/dL (6.3-8.2)
[2021-08-02 05:51] LABS: POTASSIUM 4.3 mmol/l (3.5-5.1)
--- NOTE | 2021-08-02 07:00 | NUR ---
RECIEVED REPORT FROM RIVAS MARISCAL
[2021-08-02 08:50] VITALS: BP 100/54
--- NOTE | 2021-08-02 08:50 | NUR ---
PT RESTING IN SEMI FOWLERS POSITION. PT IS A/O X3 WITH SOME CONFUSIONG. ASSESSMENT AND VITALS COMPLETED. BP 100/54, HR 76, O2 96% ON ROOM AIR. RESPIRATIONS ARE EVEN AND UNLABORED. BOWEL SOUNDS ARE ACTIVE. HEART RHYTHM NORMAL WITH TELE IN PLACE.#20G EMS IN LAC, INFUSING WITH IVF PER ORDER, SITE REMAINS HEALTHY AND PATENT. DRESSING TO LEFT EAR REMAINS CDI.PEDAL PULSES WEAK. DISCOLORATION NOTED TO BLE. PT DENIES OF ANY PAINS OR DISCOMFORTS AT THIS TIME. ALL SAFETY PRECAUTIONS ARE IN PLACE WITH CALL LIGHT IN REACH AND BED ALARM ACTIVATED. AIR/CONTACT PRECAUTIONS ARE IN PLACE. WILL CONTINUE TO MONITOR.
--- NOTE | 2021-08-02 11:50 | NUR ---
DR SHEIKH AND JUAN JOSE,ANJAMARI AT BEDSIDE
[2021-08-02 12:04] VITALS: BP 94/52
--- NOTE | 2021-08-02 13:21 | NUR ---
PT SLEEPING IN SEMI FOWLERS POSITION. RESPIRATIONS ARE EVEN AND UNLABORED ON ROOM AIR. TELE MONITORING IN PLACE. NO SIGNS OF ANY PAINS OR DISCOMFORTS. All SAFTEY PRECAUTIONS ARE IN PLACE WITH CALL LIGHT IN REACH. WILL CONTINUE TO MONITOR.
--- NOTE | 2021-08-02 16:11 | NUR ---
PT RESTING IN SEMI FOWLERS POSITION. RESPIRATIONS ARE EVEN AND UNLABORED ON ROOM AIR. TELE MONITORING IN PLACE. #20G LAC REMAINS INFUSING WITH IVF ANTIBIOTICS. PT DENIES OF ANY PAINS OR DISCOMFORTS. ALL SAFETY PRECAUTIONS ARE IN PLACE WITH CALL LIGHT IN REACH AND BED ALARM ACTIVE. WILL CONTINUE TO MONITOR.
--- NOTE | 2021-08-02 16:52 | NUR ---
PT REQUEST TO CALL [facility] , NO ANSWER. VOICE MAIL LEFT
[2021-08-02 17:06] VITALS: BP 123/58
--- NOTE | 2021-08-02 18:19 | NUR ---
NEW #22G RFA STARTED, SITE APPEARS HEALTHY AND PATENT. #20G LAC REMOVED WITH CATH STILL INTACT.
[2021-08-02 19:00] VITALS: BP 121/64
--- NOTE | 2021-08-02 20:35 | NUR ---
PATIENT ALERT AND ORIENTED WITH PERIODS OF CONFUSION. ABLE TO MAKE NEEDS KNOWN. DENIES ANY PAIN OR DISCOMFORT. ASSESSMENT COMPLETE AT THIS TIME. BED REMAINS IN LOWEST POSITION. BELONGINGS AND CALL LIGHT WITHIN REACH. BED ALARM ACTIVE. IV SITE TO RIGHT FOREARM APPEARS PATENT.
[2021-08-03] VITALS: BP 110/57
--- NOTE | 2021-08-03 00:50 | NUR ---
RESTING IN BED QUIETLY. NO COMPLAINTS VOICED AT THIS TIME. CALL LIGHT AND BELONGINGS REMAIN IN REACH.
--- NOTE | 2021-08-03 02:02 | NUR ---
PT APPEARS TO BE SLEEPING, NO S/O DISTRESS NOTED. RESP ARE EVEN AND NON-LABORED AT THIS TIME.
[2021-08-03 05:00] VITALS: BP 103/57
[2021-08-03 06:21] LABS: BASO% 1 % (0-3); EOS% 2 % (0-8); HEMATOCRIT 28.8 % (39.0-50.0); HEMOGLOBIN 8.9 g/dl (14.0-18.0); IMMATURE GRANULOCYTES 0.5 % (0.0-5.0); LYMPH% 21 % (15-41); MEAN CELL VOLUME 91.1 fL CALC (80.0-100.0); MEAN CORPUSCULAR HGB 28.2 pG CALC (26.0-32.0); MEAN CORPUSCULAR HGB CONC 30.9 g/dL CAL (32.0-36.0); MONO% 13 % (2-13); NEUT# 2.34 thou/uL (1.82-7.42); NEUT% 64 % (42-76); PLATELET COUNT 150 thou/uL (130-400); RED BLOOD COUNT 3.16 mill/uL (4.70-6.10); RED CELL DISTRI WIDTH 22.7 % (11.5-15.5)
[2021-08-03 06:44] LABS: ALBUMIN 2.6 g/dL (3.2-5.0); ALKALINE PHOSPHATASE 67 u/l (38-126); ANION GAP 11 (6-22 (CALC)); BILIRUBIN, TOTAL 0.3 mg/dL (0.0-1.4); BUN 12 mg/dL (8-23); BUN/CREATININE RATIO 15 (12-20 (CALC)); C-REACTIVE PROTEIN 1.7 mg/dL (0-0.9); CARBON DIOXIDE 23 mmol/l (22-30); CHLORIDE 104 mmol/l (95-108); CREATININE 0.8 mg/dL (0.7-1.3); GFR > 60 ML/MIN (>=60 (CALC)); GFR FOR AFR.AMER. > 60 ML/MIN (>=60 (CALC)); POTASSIUM 4.5 mmol/l (3.5-5.1); SGOT/AST 17 u/l (19-48); SODIUM 134 mmol/l (137-146); TOTAL PROTEIN 5.7 g/dL (6.3-8.2)
--- NOTE | 2021-08-03 07:00 | NUR ---
RECIEVED REPORT FROM RIVAS KINCAID
[2021-08-03 09:07] VITALS: BP 96/57
--- NOTE | 2021-08-03 09:07 | NUR ---
PT RESTING IN SEMI FOWLERS POSITION. ASSESSMENT AND VITALS COMPLETED. PT IS A/O X3 WITH REPORTS OF PERIODS OF CONFUSION.BP 96/57, HR 73, O2 98% ON ROOM AIR. RESPIRATIONS ARE EVEN AND UNLABORED WITH NO DISTRESS NOTED. LUNG SOUNDS ARE CLEAR. HEART RHYTHM IRREGULAR WITH TELE MONITORING IN PLACE, AFIB PER ER. BOWEL SOUNDS ARE ACTIVE. #22G RFA INFUSING WITH IVF PER ORDER, SITE REMAINS HEALTHY AND PATENT. BAND AID NOTED TO LEFT EAR, REMAINS CDI. PT DENIES OF ANY PAINS OR DISCOMFORTS AT THIS TIME. ALL SAFETY PRECAUTIONS ARE IN PLACE WITH CALL LIGHT IN REACH. AIR/CONTACT PRECAUTIONS ARE IN PLACE WITH CALL LIGHT IN REACH. BED ALARM ACTIVE. WILL CONTINUE TO MONITOR.
--- NOTE | 2021-08-03 10:47 | NUR ---
DR SHEIKH AND JUAN JOSE,ANJAMARI AT BEDSIDE
[2021-08-03 11:33] VITALS: BP 108/67
--- NOTE | 2021-08-03 12:21 | NUR ---
PT RESTING IN RECYLINER EATING LUNCH. REPSIRATIONS ARE EVEN AND UNLABORED ON ROOM AIR TELE MONITORING IN PLACE. #22G RFA INFUSING WITH IVF PER ORDER, SITE REMAINS HEALTHY AND PATENT. PT DENIES OF ANY PAINS OR DISCOMFORTS AT THIS TIME. ALL SAFETY PRECAUTIONS ARE IN PLACE. WILL CONTINUE TO MONITOR
[2021-08-03] MEDS ORDERED: ZITHROMAX250 MG PO (13:56)
[2021-08-03] MEDS ORDERED: OMNICEF300 MG PO (13:57)
[2021-08-03 14:15] VITALS: BP 102/58
--- NOTE | 2021-08-03 15:29 | NUR ---
FAMILY MEMEBERS [facility] AND [facility] CALLED FOR TRANSPORTATION HOME. NO ANSWER. PT AGREES TO TAKE [facility] HOME. PT STATES HE HAS KEYS TO HIS HOUSE AND IS ABLE TO GET IN HOME
--- NOTE | 2021-08-03 16:13 | NUR ---
PT EDUCATED ON DC INSTRUCTIONS AND NEW MEDICAITONS. PT VERBALIZED UNDERSTANDING. IV REMOVED WITH CATH STILL INTACT. TELE MONITORING REMOVED. ER NOTIFIED. [facility] CALLED. WILL CONTINUE TO MONITOR
--- NOTE | 2021-08-03 16:52 | NUR ---
Discharge instructions given. Patient verbalizes understanding of same. Discharged in stable condition via Wheelchair to Home with staff. All belongings sent with pt. PT DC IN STABLE CONDITION VIA [facility] PAID FROM [facility] ALL DC INSTRUCTIONS AND PERSONAL BELONGINGS ACCOMPAINED BY RIVAS THOMAS
--- NOTE | 2021-08-04 08:14 | NUR ---
08/03/21 Patient is seen for bed to chair transfers. He prefers to use his own straight cane and does so with in room ambulation, no O2 and vitals stable without LOB His Am Pac score is 18 indicating he would do well with HH follow up for strneghtening and monitoring for hypotensive responses as well as further fall rpevention Our plan is to continue progressing function
== END 2021-08-03 16:52 ==
LOC: ED 12:12 → ED-I 14:33 → ED 14:38 → MS2 14:39 → ED-I 14:39 → MS2 08-01 13:03
PROVIDERS: Nurse Practitioner; ADMIT Hospitalist; ATTEND Hospitalist
DX: U07.1 COVID-19 (principal); J12.82 Pneumonia due to coronavirus disease 2019; I95.9 Hypotension, unspecified; E87.1 Hypo-osmolality and hyponatremia; E87.5 Hyperkalemia; I11.0 Hypertensive heart disease with heart failure; I50.22 Chronic systolic (congestive) heart failure; I48.0 Paroxysmal atrial fibrillation; M19.90 Unspecified osteoarthritis, unspecified site; M10.9 Gout, unspecified; G47.30 Sleep apnea, unspecified; S10.96XA Insect bite of unspecified part of neck, initial encounter; N40.0 Benign prostatic hyperplasia without lower urinary tract symptoms; W57.XXXA Bitten or stung by nonvenomous insect and other nonvenomous arthropods, initial encounter; S01.302A Unspecified open wound of left ear, initial encounter; X58.XXXA Exposure to other specified factors, initial encounter; Z87.891 Personal history of nicotine dependence; Z79.01 Long term (current) use of anticoagulants
CPT/HCPCS: G0378

== ENCOUNTER 2022-01-14 14:59 | Emergency (ER) | payer MEDICARE ==
[~2022-01-14] VITALS: Ht 172.7 cm; Wt 82.0 kg
[~2022-01-14 14:59] MED LIST changes: +OMNICEF300 MG PO; +ZITHROMAX250 MG PO
[2022-01-14 18:20] VITALS: BP 127/74
== END 2022-01-14 18:20 | disposition home or self-care (01) ==
LOC: ED 14:59
PROC: 0HQ3XZZ Repair Left Ear Skin, External Approach (ICD-10-PCS; principal; 2022-01-14)
DX: S00.412A Abrasion of left ear, initial encounter (principal); C44.209 Unspecified malignant neoplasm of skin of left ear and external auricular canal; I48.91 Unspecified atrial fibrillation; I11.0 Hypertensive heart disease with heart failure; I50.9 Heart failure, unspecified; M10.9 Gout, unspecified; X58.XXXA Exposure to other specified factors, initial encounter; Z79.01 Long term (current) use of anticoagulants

== ENCOUNTER 2022-04-19 09:58 | Emergency (ER) | payer MEDICARE ==
[~2022-04-19] VITALS: Ht 172.7 cm; Wt 95.3 kg
[2022-04-19] VITALS (17 sets, daily range): BP systolic 120–140; BP diastolic 59–108
[2022-04-19 10:36] LABS: IMMATURE GRANULOCYTES 0.2 % (0.0-5.0); MEAN CORPUSCULAR HGB 21.7 pG CALC (26.0-32.0); MEAN CORPUSCULAR HGB CONC 26.9 g/dL CAL (32.0-36.0); NEUT# 2.77 thou/uL (1.82-7.42); RED BLOOD COUNT 2.58 mill/uL (4.70-6.10)
[2022-04-19 10:40] LABS: HEMATOCRIT 20.8 % (39.0-50.0); HEMOGLOBIN 5.6 g/dl (14.0-18.0); MEAN CELL VOLUME 80.6 fL CALC (80.0-100.0)
[2022-04-19 11:00] LABS: ALKALINE PHOSPHATASE 89 u/l (38-126); ANION GAP 12 (6-22 (CALC)); BUN 22 mg/dL (8-23); BUN/CREATININE RATIO 17 (12-20 (CALC)); CARBON DIOXIDE 21 mmol/l (22-30); CHLORIDE 109 mmol/l (95-108); CREATININE 1.3 mg/dL (0.7-1.3); GFR 53 ML/MIN (>=60 (CALC)); GFR FOR AFR.AMER. > 60 ML/MIN (>=60 (CALC)); POTASSIUM 4.3 mmol/l (3.5-5.1); SGOT/AST 19 u/l (19-48); SODIUM 138 mmol/l (137-146); TOTAL PROTEIN 6.8 g/dL (6.3-8.2)
[2022-04-19 11:02] LABS: ALBUMIN 3.4 g/dL (3.2-5.0); BILIRUBIN, TOTAL 1.2 mg/dL (0.0-1.4)
[2022-04-19] MEDS ORDERED: LASIX 20 MG TAB20 MG PO (11:25)
[2022-04-19] MEDS ORDERED: LIPITOR40 M1 PO (11:25)
[2022-04-19] MEDS ORDERED: SPIRONOLACT25 MG PO (11:26)
[2022-04-19] MEDS ORDERED: FAMOTIDINE20 M1 PO (11:26)
[2022-04-19] MEDS ORDERED: LISINOPRIL10 MG PO (11:26)
== END 2022-04-19 13:17 | disposition short-term general hospital (02) ==
LOC: ED 09:58
PROVIDERS: Family Medicine
PROC: 30233N1 Transfusion of Nonautologous Red Blood Cells into Peripheral Vein, Percutaneous Approach (ICD-10-PCS; principal; 2022-04-19)
DX: I21.4 Non-ST elevation (NSTEMI) myocardial infarction (principal); I11.0 Hypertensive heart disease with heart failure; I50.9 Heart failure, unspecified; I48.91 Unspecified atrial fibrillation; M10.9 Gout, unspecified; N40.0 Benign prostatic hyperplasia without lower urinary tract symptoms; Z79.01 Long term (current) use of anticoagulants; Z20.822 Contact with and (suspected) exposure to COVID-19
CPT/HCPCS: P9016

== ENCOUNTER 2022-09-29 05:08 | Emergency (ER) | payer MEDICARE ==
[~2022-09-29] VITALS: Ht 172.7 cm; Wt 77.2 kg
[~2022-09-29 05:08] MED LIST changes: +FAMOTIDINE20 M1 PO; +LASIX 20 MG TAB20 MG PO; +LIPITOR40 M1 PO; +LISINOPRIL10 MG PO
[2022-09-29 05:16] VITALS: BP 124/79
[2022-09-29 05:30] VITALS: BP 113/64
[2022-09-29 05:45] VITALS: BP 125/73
[2022-10-03] MEDS ORDERED: VIBRAMYCIN100 M2 PO (12:24)
[2022-10-03] MEDS ORDERED: AMOX/K CLAV875 M1 PO (12:24)
[2022-10-03] MEDS ORDERED: XARELTO15 MG PO (12:28)
== END 2022-09-29 05:56 | disposition home or self-care (01) ==
LOC: ED 05:08
DX: C44.309 Unspecified malignant neoplasm of skin of other parts of face (principal); I11.0 Hypertensive heart disease with heart failure; I50.9 Heart failure, unspecified; I48.91 Unspecified atrial fibrillation; M10.9 Gout, unspecified; Z92.3 Personal history of irradiation